=== PATIENT | female | born 1955 | race Caucasian/White ===

== ENCOUNTER 2016-10-28 10:27 | Inpatient (IN) | payer MEDICARE, MEDICAID ==
[~2016-10-28] VITALS: Ht 152.4 cm; Wt 49.0 kg
[2016-10-28] MEDS ORDERED: IV NORMAL SALINE 1000 ML BAG IV ONE (10:45)
[2016-10-28] MEDS ORDERED: HYDR50TA3 PO (10:51)
[2016-10-28] MEDS ORDERED: [UNRECOGNIZED DRUG - REMARK] (10:52)
[2016-10-28] MEDS ORDERED: ONDA4TAB8 PO (10:52)
[2016-10-28] MEDS ORDERED: ASPI-1094 PO (10:52)
[2016-10-28] MEDS ORDERED: [UNRECOGNIZED DRUG - REMARK] (10:52)
[2016-10-28 11:12] LABS: BASOPHILS % (AUTO) 0.3 % (0.0-2.0); EOSINOPHILS # (AUTO) 0.4 K/uL (0.0-0.7); EOSINOPHILS % (AUTO) 3.9 % (0.0-7.0); HEMATOCRIT 41.8 % (37-47); HEMOGLOBIN 13.9 G/DL (12.0-16.0); LYMPHOCYTES # (AUTO) 1.7 K/UL (0.8-4.8); MEAN CORPUSCULAR HEMOGLOBIN 31.3 UUG (27.0-31.0); MEAN CORPUSCULAR HGB CONC 33 g/dL (32.0-37.0); MEAN CORPUSCULAR VOLUME 94.4 FL (81.0-99.0); MONOCYTES # (AUTO) 0.5 K/UL (0.1-1.30); MONOCYTES % (AUTO) 5.2 % (0.0-11.0); NEUTROPHILS # (AUTO) 6.8 K/UL (1.8-8.9); NEUTROPHILS % (AUTO) 72.6 % (38.5-71.5); PLATELET COUNT (AUTO) 210 K/UL (150-450); RED BLOOD CELL COUNT(AUTO) 4.42 MIL/UL (4.2-5.4); WHITE BLOOD COUNT (AUTO) 9.4 K/UL (4.0-11.2)
[2016-10-28 11:14] LABS: CREATININE 6.7 mg/dL (0.6-1.3)
[2016-10-28 11:20] LABS: BILIRUBIN,DIRECT 0.1 mg/dL (0.0-0.2); BILIRUBIN,TOTAL 0.4 mg/dL (0.2-1.0); TOTAL PROTEIN, SERUM 8.6 g/dL (6.4-8.2)
--- NOTE | 2016-10-28 11:21 | NUR ---
Pt BIB ambulance for low BS=33 per paramedics; on arrival BS=76; pt a/o x 4, slow to respond, Temp 88.3C, provided with warm blankets; Evalutated by MD. Follow w/ MD orders.
[2016-10-28] MEDS: BLOOD SUGAR DIAGNOSTIC 1 EACH STRIP VI SCH ×3 (12:00→20:00)
[2016-10-28] MEDS ORDERED: PIPERACILLIN SODIUM/TAZOBACTAM 3.375 G in IV DEXTROSE 5% 50 ML IV ONE (12:00)
[2016-10-28] MEDS ORDERED: VANCOMYCIN IV 1,000 MG in IV DEXTROSE 5% 250 ML IV ONE (12:00)
[2016-10-28] MEDS ORDERED: hydrALAZINE HCL 20 MG/1 ML VIAL IV PRN (12:00)
[2016-10-28] MEDS ORDERED: Z GUARD REMEDY PASTE 57 GM TUBE TOP PRN (12:00)
[2016-10-28] MEDS ORDERED: DEXTROSE 50% 50 ML DISP.SYRIN IV PRN (12:00)
[2016-10-28] MEDS ORDERED: PIPERACILLIN/TAZOBACTAM/D5W 50 ML IV ONE (12:16)
--- NOTE | 2016-10-28 12:40 | NUR ---
A/O x 4, remains stable, nad noted, robbie shi provided for pt; Temp rechecked 93.2 C; No UA obtained via cath, Dr. Damon aware; hx of renal failure, on dialysis; report given to FLORENCIA, pt ok to transfer per MD; family w/ pt.
[2016-10-28] MEDS ORDERED: VANCOMYCIN IV 200 ML ONE (12:41)
[2016-10-28 13:00] VITALS: BP 188/75
--- NOTE | 2016-10-28 13:07 | NUR ---
At this time patient in from ER. via gurney accompanied by rn's. SBp in the 180's. temp in the low 90's patient awake, alert oriented. Placed on bear hugger. pt's daughter at bedside. Patient with IV line intact and infusing with Vancomycin.
--- NOTE | 2016-10-28 13:30 | NUR ---
REAL ESTATE BRANCH MANAGER in the unit to see patient, see orders.
[2016-10-28] MEDS ORDERED: HYDR-4077 PO (14:26)
[2016-10-28] MEDS ORDERED: CLON0.1T PO (14:27)
[2016-10-28] MEDS ORDERED: CLON1PAT TD (14:28)
[2016-10-28] MEDS ORDERED: ENALAPRILAT DIHYDRATE INJ 1.25 MG in IV NORMAL SALINE 50 ML IV PRN (14:45)
--- NOTE | 2016-10-28 14:45 | NUR ---
Dr. Marshall in the unit to see patient.
[2016-10-28] MEDS: hydrALAZINE HCL 50 MG TABLET PO SCH ×2 (15:27→21:11)
[2016-10-28 16:00] VITALS: BP 184/76
--- NOTE | 2016-10-28 16:04 | NUR ---
Dr. Brush in the unit to see patient; report given.
[2016-10-28] MEDS: ENALAPRILAT DIHYDRATE INJ 1.25 MG in IV NORMAL SALINE 50 ML IV SCH (17:29)
[2016-10-28] MEDS: ONDANSETRON 4 MG/2 ML VIAL IV PRN (18:26)
--- NOTE | 2016-10-28 19:15 | NUR ---
SBAR report received from JOSH Garcia
[2016-10-28 20:00] VITALS: BP 146/72
[2016-10-28] MEDS: PIPERACILLIN/TAZOBACTAM/D5W 2.25 G in PREMIXED 1 EACH IV SCH (20:00)
--- NOTE | 2016-10-28 20:00 | NUR ---
SBP improved 140's/70's, intermittently high 160's/90's. Encouraged to do deep breathing exercises, made her comfortable. Blood sugar checked 167mg/dl.
--- NOTE | 2016-10-28 21:00 | NUR ---
BP meds given, pt c/o of headache, she requested food, has been hungry, provided some snacks.
[2016-10-28] MEDS: ATORVASTATIN 20 MG TABLET PO SCH (21:10)
[2016-10-28] MEDS: CLONIDINE HCL 0.1 MG TABLET PO SCH (21:10)
[2016-10-28 22:00] VITALS: BP 165/90
[2016-10-28] MEDS ORDERED: PIPERACILLIN/TAZOBACTAM/D5W 3.375 G in PREMIXED 1 EACH IV SCH (22:00)
--- NOTE | 2016-10-28 22:15 | NUR ---
Report to JOSH Tinsley (FLORENCIA).Transferred pt to 2nd floor via wheelchair c/o CheryleCharge nurse (2nd floor).Pt reported felt a little bit better after eating.
--- NOTE | 2016-10-28 22:15 | NUR ---
Received telephone report from JOSH Burnett from CCU. Patient was transfered to the floor via wheelchair by the charge nurse. AAO x 4. Slovenian speaking. Complaint of lower back and right leg pain in scale of 8/10. RUE AVF new and old AVF on the [place]. BP at this time 162/80. Made comfortable on bed. Safety measure and fall precaution maintained. Continue care as planned.
[2016-10-28 22:28] VITALS: BP 162/80
[2016-10-28] MEDS: MORPHINE SULFATE 2 MG/1 ML DISP.SYRIN IV PRN (22:47)
[2016-10-29] VITALS (7 sets, daily range): BP systolic 127–168; BP diastolic 57–76
--- NOTE | 2016-10-29 | NUR ---
BS 386 mg/dl. MD was not notified Pt had HS snack.
[2016-10-29] MEDS: ENALAPRILAT DIHYDRATE INJ 1.25 MG in IV NORMAL SALINE 50 ML IV SCH ×2 (00:15→05:33)
[2016-10-29] MEDS: MORPHINE SULFATE 2 MG/1 ML DISP.SYRIN IV PRN ×3 (02:32→14:20)
--- NOTE | 2016-10-29 02:36 | NUR ---
Medicated for low back pain . Will monitor.
[2016-10-29] MEDS: BLOOD SUGAR DIAGNOSTIC 1 EACH STRIP VI SCH ×4 (03:36→22:47)
--- NOTE | 2016-10-29 03:40 | NUR ---
BS 395 mg/dl. Pt denies s/s of hyperglycemia. Left message for Dr. Gertrudis Conway. Anticipating MD to call back.
--- NOTE | 2016-10-29 03:50 | NUR ---
Dr. Conway called back with order to put patient on mild sliding scale coverage.
[2016-10-29] MEDS ORDERED: DEXTROSE 50% 50 ML DISP.SYRIN IV PRN ×5 (04:15→18:15)
[2016-10-29] MEDS ORDERED: INSULIN REGULAR, HUMAN 300 UNIT/3 ML VIAL SQ PRN ×4 (04:15→18:00)
[2016-10-29] MEDS: PIPERACILLIN/TAZOBACTAM/D5W 2.25 G in PREMIXED 1 EACH IV SCH ×3 (04:26→20:20)
[2016-10-29] MEDS ORDERED: PIPERACILLIN/TAZOBACTAM/D5W 50 ML IV ONE (04:32)
[2016-10-29] MEDS: hydrALAZINE HCL 50 MG TABLET PO SCH ×3 (05:32→21:16)
[2016-10-29] MEDS: CLONIDINE HCL 0.1 MG TABLET PO SCH ×3 (05:32→21:16)
--- NOTE | 2016-10-29 06:09 | NUR ---
Latest BP 162/75. Pt denies any s/s of hypertension. BP meds due given as ordered per parameter. Medicated twice for complaint of low back pain and bilateral leg pain with minimal relief. All needs attended and met. Continue care as planned.
[2016-10-29 07:12] LABS: BASOPHILS # (AUTO) 0.1 K/uL (0.0-8.0); BASOPHILS % (AUTO) 0.8 % (0.0-2.0); EOSINOPHILS # (AUTO) 0.3 K/uL (0.0-0.7); EOSINOPHILS % (AUTO) 4.1 % (0.0-7.0); LYMPHOCYTES # (AUTO) 1.2 K/UL (0.8-4.8); LYMPHOCYTES % (AUTO) 17.9 % (20.5-51.5); MEAN CORPUSCULAR HEMOGLOBIN 31.3 UUG (27.0-31.0); MEAN CORPUSCULAR HGB CONC 33 g/dL (32.0-37.0); MEAN CORPUSCULAR VOLUME 93.9 FL (81.0-99.0); MONOCYTES # (AUTO) 0.7 K/UL (0.1-1.30); MONOCYTES % (AUTO) 9.8 % (0.0-11.0); NEUTROPHILS # (AUTO) 4.5 K/UL (1.8-8.9); NEUTROPHILS % (AUTO) 67.4 % (38.5-71.5); PLATELET COUNT (AUTO) 175 K/UL (150-450)
[2016-10-29 07:21] LABS: HEMATOCRIT 32.2 % (37-47); HEMOGLOBIN 10.7 G/DL (12.0-16.0); RED BLOOD CELL COUNT(AUTO) 3.43 MIL/UL (4.2-5.4); WHITE BLOOD COUNT (AUTO) 6.8 K/UL (4.0-11.2)
--- NOTE | 2016-10-29 08:00 | NUR ---
CONTINUE WITH BLOOD SUGAR MONITORING, NO SIGNS OF DISTRESS, PAIN ASSESSMENT Q2 HRS
[2016-10-29] MEDS: ONDANSETRON 4 MG/2 ML VIAL IV PRN (08:03)
[2016-10-29] MEDS: PANTOPRAZOLE SODIUM 40 MG VIAL IV SCH (08:04)
[2016-10-29] MEDS: ASPIRIN 81 MG TAB.CHEW PO SCH (08:04)
[2016-10-29 09:39] LABS: BILIRUBIN,TOTAL 0.3 mg/dL (0.2-1.0); MAGNESIUM 2.9 mg/dL (1.8-2.4); POTASSIUM 4.7 mmol/L (3.5-5.1); TOTAL PROTEIN, SERUM 6.3 g/dL (6.4-8.2)
[2016-10-29 09:47] LABS: CREATININE 7.5 mg/dL (0.6-1.3)
[2016-10-29 11:51] LABS: IRON, SERUM 127 ug/dL (50-175)
[2016-10-29] MEDS: AMLODIPINE 5 MG TABLET PO SCH (12:18)
--- NOTE | 2016-10-29 13:00 | NUR ---
UP ON CHAIR WITH MIN ASSIST WITH FWW
[2016-10-29 13:16] LABS: THYROID STIMULATING HORMONE 1.761 mIU/mL (0.358-3.740)
--- NOTE | 2016-10-29 13:38 | NUR ---
SEEN BY BOOMBOAT OPERATOR WITH ORDERS. SEE NOTES
--- NOTE | 2016-10-29 14:28 | NUR ---
ELEVATOR OPERATOR FREIGHT MADE AWARE OF SEVERE PAIN BLE BUT MORE ON THE RIGHT WITH ORDERS
--- NOTE | 2016-10-29 16:00 | NUR ---
HEMODIALYSIS STARTED CLOSELY MONITORED
[2016-10-29] MEDS ORDERED: INSULIN REGULAR, HUMAN 300 UNITS/3 ML VIAL SQ PRN ×2 (18:00)
[2016-10-29] MEDS ORDERED: BLOOD SUGAR DIAGNOSTIC 1 EACH STRIP VI SCH ×3 (18:00)
[2016-10-29] MEDS: INSULIN REGULAR, HUMAN 300 UNIT/3 ML VIAL SQ PRN (18:22)
--- NOTE | 2016-10-29 18:38 | NUR ---
TOLERATING HEMODIALYSIS WELL. BP 109/59, HR 69. NO SIGNS OF ACUTE PAIN, NO SOB. SR ON MONITOR
--- NOTE | 2016-10-29 19:35 | NUR ---
PT RECEIVED IN BED, AWAKE AND COMFORTABLE. DAUGHTERS AT BEDSIDE. ABLE TO MAKE NEEDS KNOWN. VITAL SIGNS STABLE. NO SIGNS OF ACUTE DISTRESS. NO COMPLAINTS OF PAIN. SAFETY MEASURES IMPLEMENTED. CALL LIGHT WITHIN REACH. WILL CONTINUE TO MONITOR.
[2016-10-29] MEDS: ATORVASTATIN 20 MG TABLET PO SCH (20:20)
[2016-10-29] MEDS: INSULIN REGULAR, HUMAN 300 UNITS/3 ML VIAL SQ PRN (22:55)
[2016-10-30] VITALS: BP 142/68
[2016-10-30] MEDS: MORPHINE SULFATE 2 MG/1 ML DISP.SYRIN IV PRN ×4 (00:24→20:01)
[2016-10-30] MEDS: PIPERACILLIN/TAZOBACTAM/D5W 2.25 G in PREMIXED 1 EACH IV SCH ×3 (03:43→19:48)
[2016-10-30] MEDS ORDERED: BLOOD SUGAR DIAGNOSTIC 1 EACH STRIP VI SCH (04:00)
[2016-10-30 04:24] VITALS: BP 150/68
[2016-10-30] MEDS: hydrALAZINE HCL 50 MG TABLET PO SCH ×3 (05:30→21:55)
[2016-10-30] MEDS: CLONIDINE HCL 0.1 MG TABLET PO SCH ×3 (05:30→21:54)
[2016-10-30] MEDS: BLOOD SUGAR DIAGNOSTIC 1 EACH STRIP VI SCH ×4 (05:33→20:04)
[2016-10-30] MEDS: PANTOPRAZOLE SODIUM 40 MG VIAL IV SCH (06:26)
--- NOTE | 2016-10-30 06:42 | NUR ---
END OF SHIFT NOTES. PT SLEPT INTERMITTENTLY THROUGHOUT SHIFT. V/S STABLE. NO SIGNS OF ACUTE DISTRESS. COMPLAINTS OF LEG CRAMP AND PAIN BILATERALLY. PAIN MED GIVEN. NEEDS ATTENDED. SAFETY MAINTAINED. CALL LIGHT WITHIN REACH. Addendum: 10/30/16 at 0646 by ISAI MOHAN RN PT IS SINUS RHYTHM AT 68 ON THE MONITOR
[2016-10-30] MEDS: ONDANSETRON 4 MG/2 ML VIAL IV PRN ×3 (08:34→20:01)
--- NOTE | 2016-10-30 08:34 | NUR ---
PATIENT VOMITED AFTER SHE TOOK FEW BITES OF HER FOOD AND IS COMPLAINIG OF FEELIN NAUSEA MEDICATED WITH ZOFRAN ORDERED.
[2016-10-30] MEDS: ASPIRIN 81 MG TAB.CHEW PO SCH (08:35)
[2016-10-30] MEDS: AMLODIPINE 5 MG TABLET PO SCH (08:36)
[2016-10-30 08:47] LABS: BASOPHILS # (AUTO) 0.1 K/uL (0.0-8.0); EOSINOPHILS # (AUTO) 0.4 K/uL (0.0-0.7)
[2016-10-30 08:48] LABS: BASOPHILS % (AUTO) 0.9 % (0.0-2.0); EOSINOPHILS % (AUTO) 5.5 % (0.0-7.0); HEMATOCRIT 34.4 % (37-47); HEMOGLOBIN 11.4 G/DL (12.0-16.0); LYMPHOCYTES # (AUTO) 1.4 K/UL (0.8-4.8); LYMPHOCYTES % (AUTO) 18.2 % (20.5-51.5); MEAN CORPUSCULAR HEMOGLOBIN 30.5 UUG (27.0-31.0); MEAN CORPUSCULAR HGB CONC 33 g/dL (32.0-37.0); MEAN CORPUSCULAR VOLUME 91.9 FL (81.0-99.0); MONOCYTES # (AUTO) 0.9 K/UL (0.1-1.30); MONOCYTES % (AUTO) 11.1 % (0.0-11.0); NEUTROPHILS # (AUTO) 4.9 K/UL (1.8-8.9); NEUTROPHILS % (AUTO) 64.3 % (38.5-71.5); PLATELET COUNT (AUTO) 173 K/UL (150-450); RED BLOOD CELL COUNT(AUTO) 3.74 MIL/UL (4.2-5.4); WHITE BLOOD COUNT (AUTO) 7.8 K/UL (4.0-11.2)
[2016-10-30 09:05] LABS: BILIRUBIN,TOTAL 0.4 mg/dL (0.2-1.0); CREATININE 6.2 mg/dL (0.6-1.3); MAGNESIUM 2.5 mg/dL (1.8-2.4); POTASSIUM 5.2 mmol/L (3.5-5.1)
--- NOTE | 2016-10-30 09:20 | NUR ---
CALL FROM THE LAB PHOSPHORUS LEVEL IS 8.0 SAME YESTERDAY APRIL GRID INSPECTOR NOTIFIED WITH NO NEW ORDERS AT THIS TIME.
--- NOTE | 2016-10-30 09:40 | NUR ---
NEW ORDERS NOTED AT THIS TIME AND CARRIED OUT.
[2016-10-30] MEDS: SEVELAMER CARBONATE 800 MG TABLET PO SCH ×3 (09:45→17:25)
--- NOTE | 2016-10-30 10:37 | NUR ---
RENVELLA NOT GIVEN AT THIS TIME BECAUSE IT IS TO BE GIVEN WITH FOOD AND PATIENT DID NOT WANT TO EAT ANYTHING AT THIS TIME STATED THAT HER STOMACH FEELS FUNNY.
--- NOTE | 2016-10-30 11:19 | NUR ---
COMPLAINING OF PAIN IN HER LOWER EXTREMITIES RIGHT MORE THAN THE LEFT MEDICATED WITH MORPHINE ORDERED ANG WILL OBSERVE.PATIENT STATED WANTS ORAL MEDICATION FOR PAIN APRIL NOTIFIED AND SHE WANTS TO ORDER NORCO BUT PATIENT IS ALLERGIC TO ACETAMINOPHEN HYDROCODONE SO NO NEW ORDERS AT THIS TIME.
[2016-10-30 11:32] VITALS: BP 162/74
[2016-10-30] MEDS: INSULIN REGULAR, HUMAN 300 UNIT/3 ML VIAL SQ PRN ×2 (12:35→16:52)
[2016-10-30 16:04] VITALS: BP 160/78
--- NOTE | 2016-10-30 17:23 | NUR ---
BLOOD PRESSURE AT THIS TIME IS 160/78 UNABLE TO GIVE APRESOLINE IV ORDERED BECAUSE PATIENT IS NO LONGER ON TELEMETRY SO I CALLED DR ABEL AND NOTIFIED HIM AND HE STATED TO DISCONTINUE THE IV APRESOLINE AND START PATIENT ON COREG FIRST DOSE NOW AND NOTED AND WILL CONTINUE TO OBSERVE.
[2016-10-30] MEDS: CARVEDILOL 6.25 MG TABLET PO SCH ×2 (17:34→20:46)
[2016-10-30 20:00] VITALS: BP 152/73
[2016-10-30] MEDS: ATORVASTATIN 20 MG TABLET PO SCH (20:46)
[2016-10-30] MEDS: INSULIN REGULAR, HUMAN 300 UNITS/3 ML VIAL SQ PRN (20:49)
[2016-10-31] MEDS: ONDANSETRON 4 MG/2 ML VIAL IV PRN ×2 (01:54→08:52)
[2016-10-31] MEDS: MORPHINE SULFATE 2 MG/1 ML DISP.SYRIN IV PRN ×3 (01:54→23:29)
[2016-10-31] MEDS: PIPERACILLIN/TAZOBACTAM/D5W 2.25 G in PREMIXED 1 EACH IV SCH (04:05)
[2016-10-31 04:53] VITALS: BP 153/72
--- NOTE | 2016-10-31 05:06 | NUR ---
Patient still c/o on & off pain on bilateral knee & leg. Medicated for pain PRN, no acute resp. distress.
[2016-10-31] MEDS: hydrALAZINE HCL 50 MG TABLET PO SCH ×3 (05:50→22:20)
[2016-10-31] MEDS: CLONIDINE HCL 0.1 MG TABLET PO SCH ×3 (05:50→22:20)
[2016-10-31] MEDS: BLOOD SUGAR DIAGNOSTIC 1 EACH STRIP VI SCH ×4 (05:50→20:24)
[2016-10-31] MEDS: PANTOPRAZOLE SODIUM 40 MG TABLET.DR PO SCH (05:51)
[2016-10-31] MEDS: INSULIN REGULAR, HUMAN 300 UNIT/3 ML VIAL SQ PRN ×3 (07:26→16:39)
--- NOTE | 2016-10-31 07:30 | NUR ---
pt received in bed awake.pt is axox4.German speaking morning assessment done..
[2016-10-31] MEDS: ASPIRIN 81 MG TAB.CHEW PO SCH (08:01)
[2016-10-31] MEDS: SEVELAMER CARBONATE 800 MG TABLET PO SCH ×3 (08:01→17:04)
[2016-10-31] MEDS: CARVEDILOL 6.25 MG TABLET PO SCH (08:02)
[2016-10-31] MEDS: AMLODIPINE 5 MG TABLET PO SCH ×2 (08:02→20:18)
[2016-10-31 10:17] LABS: BASOPHILS % (AUTO) 0.6 % (0.0-2.0); EOSINOPHILS # (AUTO) 0.3 K/uL (0.0-0.7); EOSINOPHILS % (AUTO) 4.1 % (0.0-7.0); HEMATOCRIT 31.6 % (37-47); HEMOGLOBIN 10.5 G/DL (12.0-16.0); LYMPHOCYTES # (AUTO) 0.9 K/UL (0.8-4.8); LYMPHOCYTES % (AUTO) 12.7 % (20.5-51.5); MEAN CORPUSCULAR HEMOGLOBIN 30.8 UUG (27.0-31.0); MEAN CORPUSCULAR HGB CONC 33 g/dL (32.0-37.0); MEAN CORPUSCULAR VOLUME 92.4 FL (81.0-99.0); MONOCYTES # (AUTO) 0.5 K/UL (0.1-1.30); MONOCYTES % (AUTO) 6.2 % (0.0-11.0); NEUTROPHILS # (AUTO) 5.8 K/UL (1.8-8.9); NEUTROPHILS % (AUTO) 76.4 % (38.5-71.5); PLATELET COUNT (AUTO) 165 K/UL (150-450); RED BLOOD CELL COUNT(AUTO) 3.42 MIL/UL (4.2-5.4); WHITE BLOOD COUNT (AUTO) 7.5 K/UL (4.0-11.2)
[2016-10-31 10:26] LABS: BILIRUBIN,TOTAL 0.4 mg/dL (0.2-1.0); CREATININE 5.4 mg/dL (0.6-1.3); MAGNESIUM 2.4 mg/dL (1.8-2.4); PHOSPHOROUS 6.2 mg/dL (2.5-4.9); TOTAL PROTEIN, SERUM 6.8 g/dL (6.4-8.2)
[2016-10-31 11:13] VITALS: BP 157/68
[2016-10-31] MEDS ORDERED: CEFTRIAXONE 1 G in IV DEXTROSE 5% 50 ML IV SCH (12:00)
--- NOTE | 2016-10-31 12:05 | NUR ---
dialysis done 2 litter fluid removed .
--- NOTE | 2016-10-31 12:07 | NUR ---
microbiology lab called pt is positive for c-Diff .fitness worker barry notified.
[2016-10-31] MEDS: VANCOMYCIN FOR PO/GT/NG USE PO SCH ×3 (13:26→23:24)
[2016-10-31 15:33] VITALS: BP 138/65
--- NOTE | 2016-10-31 17:12 | NUR ---
pt c/o pain ,per md orders morphine i/v given.
[2016-10-31 20:04] VITALS: BP 162/78
[2016-10-31] MEDS: ATORVASTATIN 20 MG TABLET PO SCH (20:18)
[2016-10-31] MEDS: INSULIN REGULAR, HUMAN 300 UNITS/3 ML VIAL SQ PRN (20:27)
--- NOTE | 2016-11-01 04:26 | NUR ---
PT C/O R LEG PAIN 10/ LAST NIGHT, WAS GIVEN MS 2MG, NO FURTHER C/O PAIN, SLEEPING AT THIS TIME, IN NO ACUTE SIGNS OF DISTRESS. BS CHECKED, 242, GIVEN INSULIN PER SLIDING SCALE. CONTINUED TO MONITOR.
[2016-11-01] MEDS: hydrALAZINE HCL 50 MG TABLET PO SCH ×3 (05:40→22:14)
[2016-11-01] MEDS: CLONIDINE HCL 0.1 MG TABLET PO SCH ×2 (05:41→16:49)
[2016-11-01] MEDS: VANCOMYCIN FOR PO/GT/NG USE PO SCH ×4 (05:42→23:35)
[2016-11-01] MEDS: PANTOPRAZOLE SODIUM 40 MG TABLET.DR PO SCH (06:03)
[2016-11-01] MEDS: MORPHINE SULFATE 2 MG/1 ML DISP.SYRIN IV PRN ×2 (06:19→20:55)
[2016-11-01 06:39] VITALS: BP 141/60
[2016-11-01] MEDS: BLOOD SUGAR DIAGNOSTIC 1 EACH STRIP VI SCH ×4 (06:40→20:31)
[2016-11-01 07:44] LABS: BILIRUBIN,TOTAL 0.5 mg/dL (0.2-1.0); CREATININE 6.6 mg/dL (0.6-1.3); MAGNESIUM 2.6 mg/dL (1.8-2.4); POTASSIUM 5.4 mmol/L (3.5-5.1); TOTAL PROTEIN, SERUM 7.3 g/dL (6.4-8.2)
[2016-11-01 07:57] LABS: PHOSPHOROUS 8.5 mg/dL (2.5-4.9)
[2016-11-01] MEDS: INSULIN REGULAR, HUMAN 300 UNIT/3 ML VIAL SQ PRN ×2 (08:09→11:59)
[2016-11-01] MEDS: SEVELAMER CARBONATE 800 MG TABLET PO SCH ×3 (08:11→17:35)
[2016-11-01] MEDS: ASPIRIN 81 MG TAB.CHEW PO SCH (08:11)
[2016-11-01] MEDS: AMLODIPINE 5 MG TABLET PO SCH ×2 (08:12→20:31)
[2016-11-01 08:13] LABS: BASOPHILS # (AUTO) 0.1 K/uL (0.0-8.0); BASOPHILS % (AUTO) 0.7 % (0.0-2.0); EOSINOPHILS # (AUTO) 0.4 K/uL (0.0-0.7); HEMATOCRIT 33.1 % (37-47); HEMOGLOBIN 10.7 G/DL (12.0-16.0); LYMPHOCYTES # (AUTO) 1.7 K/UL (0.8-4.8); LYMPHOCYTES % (AUTO) 17.3 % (20.5-51.5); MEAN CORPUSCULAR HEMOGLOBIN 29.6 UUG (27.0-31.0); MEAN CORPUSCULAR HGB CONC 32 g/dL (32.0-37.0); MEAN CORPUSCULAR VOLUME 91.7 FL (81.0-99.0); NEUTROPHILS # (AUTO) 6.5 K/UL (1.8-8.9); PLATELET COUNT (AUTO) 179 K/UL (150-450); RED BLOOD CELL COUNT(AUTO) 3.62 MIL/UL (4.2-5.4)
[2016-11-01 08:15] LABS: WHITE BLOOD COUNT (AUTO) 9.7 K/UL (4.0-11.2)
--- NOTE | 2016-11-01 09:48 | NUR ---
NEW ORDERS NOTED FROM APRIL MANAGER READING AND NOTED.
[2016-11-01] MEDS ORDERED: ISOSORBIDE DINITRATE 10 MG TABLET PO SCH (10:30)
--- NOTE | 2016-11-01 10:48 | NUR ---
PATIENT SEEN AND EXAMINED BY DR ALEGRE RAILROAD CROSSING PROTECTION MAINTAINER WITH NEW ORDERS AND NOTED.
[2016-11-01] MEDS ORDERED: SEVE800T PO (11:04)
[2016-11-01] MEDS ORDERED: ISOS20TA8 PO (11:04)
[2016-11-01] MEDS ORDERED: AMLO5TAB2 PO (11:04)
[2016-11-01] MEDS ORDERED: HYDR50TA68 PO (11:04)
[2016-11-01] MEDS ORDERED: CEPH250C PO ×2 (11:04→11:08)
[2016-11-01] MEDS ORDERED: VANC500V PO (11:04)
[2016-11-01] MEDS ORDERED: CEPHALEXIN MONOHYDRATE 250 MG CAPSULE PO SCH ×2 (11:04→14:00)
[2016-11-01] MEDS ORDERED: ATOR20TA PO (11:04)
[2016-11-01] MEDS ORDERED: CLON0.1T14 PO (11:08)
[2016-11-01] MEDS ORDERED: INSU100V28 SQ ×2 (11:14)
--- NOTE | 2016-11-01 11:25 | NUR ---
PATIENT SEEN BY DR BETHEA AND STATED THAT PATIENT WILL HAVE DIALYSIS TODAY BUT APRIL WIRE COMMUNICATIONS ENGINEER HERE AND DISCHARGED THE PATIENT PATIENT STATED THAT ITS OKAY FOR PATIENT TO HAVE THE DIALYSIS THEN BE DISCHARGE TONITE AND NOTED.PATIENT AND HER FAMILY AWARE.
[2016-11-01 11:48] VITALS: BP 148/66
[2016-11-01] MEDS: ISOSORBIDE DINITRATE 20 MG TABLET PO SCH ×2 (11:56→20:31)
--- NOTE | 2016-11-01 12:00 | NUR ---
NEW ORDERS NOTED FROM APRIL TO CANCEL THE DISCHARGE AND START PATIENT ON [place] AND THE ID DR PEREZ WILL BE HERE TODAY TO SEE PATIENT AND NOTED.
[2016-11-01] MEDS ORDERED: MEROPENEM 250 MG in IV NORMAL SALINE 50 ML IV SCH (12:15)
[2016-11-01] MEDS ORDERED: MEROPENEM 0.5 G in IV NORMAL SALINE 50 ML IV PRN (12:30)
[2016-11-01] MEDS: MEROPENEM 0.5 G in IV NORMAL SALINE 50 ML IV SCH (13:47)
--- NOTE | 2016-11-01 15:38 | NUR ---
MANAGER TECHNOLOGY HERE TO START DIALYSIS ORDERED IVPB GIVEN ORDERED WITH NO ADVERSE OR ALLERGIC REACTIONS AT THIS TIME.REMAIN ON CONTACT ISOLATION AND PRECAUTION NOT IN DISTRESS AT THIS TIME.
[2016-11-01 16:12] VITALS: BP 139/75
--- NOTE | 2016-11-01 16:52 | NUR ---
PATIENT IS CURRENTLY HAVING DIALYSIS HER BLOOD PRESSURE IS 139/61 CLONIDINE HELD AT THIS TIME.DAUGHTER IS AT THE BEDSIDE AND PER ARPIL SHE SPOKE WITH THE DAUGHTER AT LENGTH RE CANCELLING THE ADMISSION.
--- NOTE | 2016-11-01 17:31 | NUR ---
DIALYSIS COMPLETED ORDERED AND ONE LITER WAS REMOVED AND MEREM GIVEN POST DIALYSIS ORDERED AND PATIENT TOLERATED WELL..
[2016-11-01 19:00] VITALS: BP 137/68
--- NOTE | 2016-11-01 19:45 | NUR ---
PATIENT AWAKE IN BED WITH FAMILY AT BEDSIDE. NO C/O PAIN AT THIS TIME. NO RESP. DISTRESS NOTED. VSS. H/L INTACT AND PATENT. BED ALARM ON. CALL LIGHT IN REACH. ALL NEEDS ATTENDED. WILL CONTINUE TO MONITOR.
[2016-11-01] MEDS: ATORVASTATIN 20 MG TABLET PO SCH (20:31)
[2016-11-01] MEDS: INSULIN REGULAR, HUMAN 300 UNITS/3 ML VIAL SQ PRN (20:32)
[2016-11-01] MEDS ORDERED: MORPHINE SULFATE 2 MG/1 ML DISP.SYRIN IV PRN (22:00)
[2016-11-01] MEDS ORDERED: MORPHINE SULFATE 2 MG/1 ML DISP.SYRIN IV ONE (22:15)
[2016-11-01] MEDS ORDERED: MORPHINE SULFATE 2 MG/1 ML DISP.SYRIN ONE (22:28)
[2016-11-02 05:00] VITALS: BP 157/65
[2016-11-02] MEDS: PANTOPRAZOLE SODIUM 40 MG TABLET.DR PO SCH (06:09)
[2016-11-02] MEDS: VANCOMYCIN FOR PO/GT/NG USE PO SCH ×2 (06:09→11:27)
[2016-11-02] MEDS: hydrALAZINE HCL 50 MG TABLET PO SCH (06:10)
--- NOTE | 2016-11-02 06:20 | NUR ---
PATIENT AWAKE IN BED. SLEPT WELL. NO C/O PAIN OR DISCOMFORT. NO RESP. DISTRESS NOTED. BED ALARM ON. CALL LIGHT IN REACH. ALL NEEDS ATTENDED. WILL CONTINUE TO MONITOR.
[2016-11-02] MEDS: BLOOD SUGAR DIAGNOSTIC 1 EACH STRIP VI SCH ×2 (06:47→11:26)
[2016-11-02 07:07] LABS: BILIRUBIN,TOTAL 0.2 mg/dL (0.2-1.0); CREATININE 5.6 mg/dL (0.6-1.3); MAGNESIUM 2.4 mg/dL (1.8-2.4); PHOSPHOROUS 7.5 mg/dL (2.5-4.9); POTASSIUM 5.3 mmol/L (3.5-5.1); TOTAL PROTEIN, SERUM 6.8 g/dL (6.4-8.2)
[2016-11-02 07:14] LABS: BASOPHILS # (AUTO) 0.1 K/uL (0.0-8.0); BASOPHILS % (AUTO) 0.6 % (0.0-2.0); EOSINOPHILS # (AUTO) 0.4 K/uL (0.0-0.7); EOSINOPHILS % (AUTO) 4.2 % (0.0-7.0); HEMATOCRIT 29.8 % (37-47); LYMPHOCYTES # (AUTO) 1.2 K/UL (0.8-4.8); LYMPHOCYTES % (AUTO) 12.6 % (20.5-51.5); MEAN CORPUSCULAR HEMOGLOBIN 31.2 UUG (27.0-31.0); MEAN CORPUSCULAR HGB CONC 34 g/dL (32.0-37.0); MEAN CORPUSCULAR VOLUME 93.2 FL (81.0-99.0); MONOCYTES % (AUTO) 10.9 % (0.0-11.0); NEUTROPHILS # (AUTO) 6.5 K/UL (1.8-8.9); NEUTROPHILS % (AUTO) 71.7 % (38.5-71.5); PLATELET COUNT (AUTO) 188 K/UL (150-450); WHITE BLOOD COUNT (AUTO) 9.2 K/UL (4.0-11.2)
[2016-11-02 07:23] LABS: RED BLOOD CELL COUNT(AUTO) 3.25 MIL/UL (4.2-5.4)
[2016-11-02] MEDS: INSULIN REGULAR, HUMAN 300 UNIT/3 ML VIAL SQ PRN ×2 (08:03→11:31)
[2016-11-02] MEDS: SEVELAMER CARBONATE 800 MG TABLET PO SCH ×2 (08:04→11:26)
[2016-11-02] MEDS: ASPIRIN 81 MG TAB.CHEW PO SCH (08:36)
[2016-11-02] MEDS: AMLODIPINE 5 MG TABLET PO SCH (08:37)
[2016-11-02] MEDS: CLONIDINE HCL 0.1 MG TABLET PO SCH (08:37)
[2016-11-02] MEDS: ISOSORBIDE DINITRATE 20 MG TABLET PO SCH (08:38)
--- NOTE | 2016-11-02 09:00 | NUR ---
PATIENT IS AWAKE ALERT AND ORIENTED SITTING UP ON THE CHAIR USING THE FRONT WHEEL WALKER.RIGHT UPPER ARM AV SHUNT REMAINS INTACT WITH BRUIT AND THRILL WITH NO BLEEDING AT THIS TIME.REMAIN ON CONTACT ISOLATION AND PRECAUTION ORDERED.PATIENT AND HIS FAMILY EDUCATED ON ISOLATION PROTOCOLS AND THEY EXPRESSED UNDERSTANDING.
[2016-11-02] MEDS ORDERED: NIFEdipine XL 60 MG TABSR PO SCH (09:30)
--- NOTE | 2016-11-02 11:22 | NUR ---
The patient will be discharged today back home [[id number], [place] [id number]] per Greta Owens CATALYST MANUFACTURING OPERATOR. Her daughter is aware of her discharge and will be picking her up via private car. Her RN, Audrey, is aware of her discharge plan.
[2016-11-02 11:51] VITALS: BP 138/64
[2016-11-02] MEDS ORDERED: NIFE60TA2 PO (11:56)
[2016-11-02] MEDS ORDERED: [UNRECOGNIZED DRUG - CODE] PO (11:56)
[2016-11-02] MEDS ORDERED: METRONIDAZOLE 250 MG TABLET PO SCH (12:00)
[2016-11-02] MEDS: MEROPENEM 0.5 G in IV NORMAL SALINE 50 ML IV SCH (12:34)
--- NOTE | 2016-11-02 13:05 | NUR ---
PATIENT DISCHARGED PICKED UP BY HER DAUGHTER NICOLASA IN SATISFACTORY CONDITION WITH DISCHARGE INSTRUCTIONS AND PRESCRIPTIONS AND SHE WAS INSTRUCTED TO OBSERVE CONTACT ISOLATION WITH GOOD HANDWASHING PATIENT HAS C DEFFICILE TOXINS IN HER STOOL AND ESBL AND TO CALL HER PRIMARY DOCTOR FOR A FOLLOW UP APPOINTMENT WITHIN THE NEXT ONE TO TWO WEEKS FOR URINE RECHECK AND TO CONTINUE HER DIALYSIS ORDERED AND SHE EXPRESSED UNDERSTANDING.
== END 2016-11-02 13:05 | disposition home or self-care (01) | DRG 371 ==
LOC: ER 10:27 → CCU 12:41 → TELE-TD 22:13 → TELE 10-29 14:48 → MED 10-30 12:53
PROVIDERS: ADMIT Internal Medicine; ATTEND Internal Medicine
PROC: 5A1D60Z (ICD-10-PCS; principal; 2016-10-29)
DX: A04.7 Enterocolitis due to Clostridium difficile (principal); I50.33 Acute on chronic diastolic (congestive) heart failure; G92 Toxic encephalopathy; N18.6 End stage renal disease; I13.2 Hypertensive heart and chronic kidney disease with heart failure and with stage 5 chronic kidney disease, or end stage renal disease; N39.0 Urinary tract infection, site not specified; E44.0 Moderate protein-calorie malnutrition; E11.649 Type 2 diabetes mellitus with hypoglycemia without coma; E11.22 Type 2 diabetes mellitus with diabetic chronic kidney disease; Z99.2 Dependence on renal dialysis; D63.1 Anemia in chronic kidney disease; Z79.4 Long term (current) use of insulin; Z90.49 Acquired absence of other specified parts of digestive tract; E11.42 Type 2 diabetes mellitus with diabetic polyneuropathy; Z80.0 Family history of malignant neoplasm of digestive organs; I16.0 Hypertensive urgency; B96.29 Other Escherichia coli [E. coli] as the cause of diseases classified elsewhere; Z16.12 Extended spectrum beta lactamase (ESBL) resistance; M17.0 Bilateral primary osteoarthritis of knee; Z68.21 Body mass index [BMI] 21.0-21.9, adult; F17.210 Nicotine dependence, cigarettes, uncomplicated; M89.9 Disorder of bone, unspecified; I08.0 Rheumatic disorders of both mitral and aortic valves; E87.5 Hyperkalemia; E83.41 Hypermagnesemia; E83.39 Other disorders of phosphorus metabolism; R68.0 Hypothermia, not associated with low environmental temperature; R60.0 Localized edema
CPT/HCPCS: 36415; 70030-TC; 71010; 73560; 73590; 76700; 83550; 83605; 83690; 83735; 84100; 84443; 85025; 85730; 87040; 87077; 87086; 90937; 93005; 93307; 97116; 97161; 97530; A4663; C1758; C9113; J0696; J1815; J2185; J2270; J2405; J2543; J3370; J3490; J7030; J7050; J7060

== ENCOUNTER 2016-11-27 18:54 | Inpatient (IN) | payer MEDICARE, MEDICAID ==
[~2016-11-27] VITALS: Ht 154.9 cm; Wt 55.5 kg
[~2016-11-27 18:54] MED LIST: ASPI-1094 PO; ATOR20TA PO; CLON0.1T14 PO; HYDR50TA68 PO; INSU100V28 SQ; ISOS20TA8 PO; METR250T4 PO; NIFE60TA2 PO; SEVE800T7 PO
--- NOTE | 2016-11-27 19:07 | NUR ---
Dr. Damon at bedside for eval.
[2016-11-27] MEDS ORDERED: IV NORMAL SALINE 1000 ML BAG IV ONE (19:15)
[2016-11-27] MEDS ORDERED: ONDANSETRON 4 MG/2 ML VIAL IV ONE (19:15)
[2016-11-27] MEDS ORDERED: HYDROMORPHONE 1 MG/1 ML DISP.SYRIN IV ONE (19:15)
[2016-11-27] MEDS ORDERED: HYDROMORPHONE 1 MG/1 ML DISP.SYRIN ONE (19:44)
[2016-11-27] MEDS ORDERED: ONDANSETRON 4 MG/2 ML VIAL ONE (19:44)
[2016-11-27 19:49] LABS: BASOPHILS # (AUTO) 0.3 K/uL (0.0-8.0); BASOPHILS % (AUTO) 2.1 % (0.0-2.0); EOSINOPHILS # (AUTO) 0.3 K/uL (0.0-0.7); HEMATOCRIT 26.5 % (37-47); HEMOGLOBIN 8.6 G/DL (12.0-16.0); LYMPHOCYTES # (AUTO) 0.8 K/UL (0.8-4.8); LYMPHOCYTES % (AUTO) 4.9 % (20.5-51.5); MEAN CORPUSCULAR HGB CONC 32 g/dL (32.0-37.0); MEAN CORPUSCULAR VOLUME 92.6 FL (81.0-99.0); MONOCYTES # (AUTO) 1.2 K/UL (0.1-1.30); MONOCYTES % (AUTO) 7.5 % (0.0-11.0); NEUTROPHILS # (AUTO) 13.3 K/UL (1.8-8.9); NEUTROPHILS % (AUTO) 83.5 % (38.5-71.5); PLATELET COUNT (AUTO) 178 K/UL (150-450); RED BLOOD CELL COUNT(AUTO) 2.86 MIL/UL (4.2-5.4); WHITE BLOOD COUNT (AUTO) 15.9 K/UL (4.0-11.2)
[2016-11-27 19:54] LABS: CREATININE 6.7 mg/dL (0.6-1.3); POTASSIUM 3.9 mmol/L (3.5-5.1)
[2016-11-27 20:00] LABS: BILIRUBIN,DIRECT 0.1 mg/dL (0.0-0.2); BILIRUBIN,TOTAL 0.5 mg/dL (0.2-1.0); TOTAL PROTEIN, SERUM 7.2 g/dL (6.4-8.2)
[2016-11-27 20:04] LABS: BAND % (MANUAL) 2 % (0-10); EOSINOPHILS % (MANUAL) 1 % (0-8); LYMPHOCYTES % (MANUAL) 11 % (20-40); MONOCYTES % (MANUAL) 7 % (2-10); NEUTROPHILS % (MANUAL) 79 % (42-75)
--- NOTE | 2016-11-27 21:10 | NUR ---
Report called to Will. Patient admitted to room [address] Tinajero.
--- NOTE | 2016-11-27 21:20 | NUR ---
Patient has money in her purse and would like to have it palced in hospital safe. Money counted with JOSH Jiang. Envelope with money given to Copywriter. Copy provided to patient.
--- NOTE | 2016-11-27 22:00 | NUR ---
PATIENT ADMITTED TELE UNIT UNDER DR ABEL , BELONGINGS WAS LISTED IN INVENTORY LIST. ORIENTED TO ROOM.
--- NOTE | 2016-11-27 22:00 | NUR ---
Transported patient to room 205 via gurney. Patient left ER in no acute distress.
[2016-11-27 22:12] VITALS: BP 151/61
[2016-11-27] MEDS ORDERED: TEMAZEPAM 15 MG CAPSULE PO PRN (23:15)
[2016-11-27] MEDS ORDERED: MORPHINE SULFATE 2 MG/1 ML DISP.SYRIN IV PRN (23:15)
--- NOTE | 2016-11-27 23:56 | NUR ---
PATIENT REFUSED DVT PUMP, STATED "IT BOTHER BOTH OF HER LEGS" EXPLAINED THE RISK AND BENEFIT THRU VACUUM FORMING MACHINE OPERATOR, STILL REFUSED.
[2016-11-27 23:58] VITALS: BP 148/60
[2016-11-28] MEDS ORDERED: MORPHINE SULFATE 2 MG/1 ML DISP.SYRIN ONE (00:36)
[2016-11-28] MEDS: IBUPROFEN 600 MG TABLET PO PRN ×2 (03:10→12:10)
--- NOTE | 2016-11-28 03:11 | NUR ---
PATIENT STILL COMPLAIN OF R PELVIC PAIN, NOTIFY DR ROMULO LEWIS WITH ORDER OF MOTRIN 600MG EVERY 8 HRS NEEDED.
[2016-11-28] MEDS ORDERED: IBUPROFEN 600 MG TABLET ONE (03:18)
[2016-11-28 05:00] VITALS: BP 178/77
[2016-11-28] MEDS: hydrALAZINE HCL 50 MG TABLET PO SCH ×3 (06:20→22:00)
[2016-11-28] MEDS ORDERED: hydrALAZINE HCL 50 MG TABLET ONE (06:28)
[2016-11-28 07:12] LABS: BASOPHILS % (AUTO) 0.3 % (0.0-2.0); EOSINOPHILS # (AUTO) 0.5 K/uL (0.0-0.7); EOSINOPHILS % (AUTO) 3.6 % (0.0-7.0); HEMOGLOBIN 8.3 G/DL (12.0-16.0); LYMPHOCYTES # (AUTO) 1.3 K/UL (0.8-4.8); MEAN CORPUSCULAR HEMOGLOBIN 29.6 UUG (27.0-31.0); MEAN CORPUSCULAR HGB CONC 32 g/dL (32.0-37.0); MEAN CORPUSCULAR VOLUME 92.1 FL (81.0-99.0); MONOCYTES # (AUTO) 1.1 K/UL (0.1-1.30); MONOCYTES % (AUTO) 8.7 % (0.0-11.0); NEUTROPHILS # (AUTO) 9.6 K/UL (1.8-8.9); NEUTROPHILS % (AUTO) 77.4 % (38.5-71.5); RED BLOOD CELL COUNT(AUTO) 2.82 MIL/UL (4.2-5.4); WHITE BLOOD COUNT (AUTO) 12.5 K/UL (4.0-11.2)
[2016-11-28 07:41] LABS: BILIRUBIN,TOTAL 0.4 mg/dL (0.2-1.0); MAGNESIUM 2.8 mg/dL (1.8-2.4); PHOSPHOROUS 5.8 mg/dL (2.5-4.9); POTASSIUM 3.7 mmol/L (3.5-5.1); TOTAL PROTEIN, SERUM 6.9 g/dL (6.4-8.2)
[2016-11-28 08:00] VITALS: BP 160/73
[2016-11-28] MEDS: CLONIDINE HCL 0.1 MG TABLET PO SCH ×2 (08:01→16:12)
[2016-11-28] MEDS: SEVELAMER CARBONATE 800 MG TABLET PO SCH ×3 (08:01→17:45)
[2016-11-28] MEDS: NIFEdipine XL 60 MG TABSR PO SCH (08:02)
[2016-11-28] MEDS: HYDROCODONE/APAP 5-325MG TABLET PO PRN ×2 (08:02→17:45)
[2016-11-28 08:06] LABS: CREATININE 7.6 mg/dL (0.6-1.3)
[2016-11-28] MEDS ORDERED: MORPHINE SULFATE 4 MG/1 ML DISP.SYRIN IV PRN (08:15)
[2016-11-28] MEDS: PANTOPRAZOLE SODIUM 40 MG TABLET.DR PO SCH (08:19)
[2016-11-28] MEDS ORDERED: TEMAZEPAM 7.5 MG CAPSULE PO PRN (08:30)
[2016-11-28] MEDS: ISOSORBIDE DINITRATE 20 MG TABLET PO SCH ×2 (08:37→20:55)
[2016-11-28 10:26] LABS: PLATELET COUNT (AUTO) 206 K/UL (150-450)
[2016-11-28 11:14] VITALS: BP 118/52
[2016-11-28] MEDS: MORPHINE SULFATE 4 MG/1 ML DISP.SYRIN IV PRN ×2 (11:22→21:06)
[2016-11-28] MEDS: ONDANSETRON 4 MG/2 ML VIAL IV PRN (12:13)
[2016-11-28 15:09] VITALS: BP 114/50
--- NOTE | 2016-11-28 18:47 | NUR ---
PATIENT IN BED RESTING. NO S/S OF DISTRESS NOTED. C/O OF RIGHT LEG. MEDICATED ORDERED. COMPLIANT WITH THE PLAN OF CARE. COMPLAINED OF ITCHING, WILL ENDORSE TO NEXT NURSE. SAFETY AND COMFORT PROVIDED BY STAFF. WILL CONTINUE MONITORING.
[2016-11-28 20:00] VITALS: BP 123/51
[2016-11-28] MEDS: ATORVASTATIN 20 MG TABLET PO SCH (20:55)
[2016-11-28] MEDS: diphenhydrAMINE 50 MG/1 ML VIAL IV PRN (21:06)
--- NOTE | 2016-11-28 21:20 | NUR ---
patient awake, alert, oriented,c/o right pelvic pain and itching, morphine 3 mg iv and Benadryl 25 mg iv admin for pain and itching,patient was instructed for bedrest activity,to call for assistance,patient verbalized understanding,continue closely monitor.
[2016-11-29] VITALS: BP 152/63
[2016-11-29] MEDS: MORPHINE SULFATE 4 MG/1 ML DISP.SYRIN IV PRN ×4 (00:28→20:53)
[2016-11-29 04:00] VITALS: BP 147/64
[2016-11-29] MEDS: diphenhydrAMINE 50 MG/1 ML VIAL IV PRN ×2 (04:32→22:40)
[2016-11-29] MEDS: hydrALAZINE HCL 50 MG TABLET PO SCH ×3 (05:52→22:29)
[2016-11-29] MEDS: PANTOPRAZOLE SODIUM 40 MG TABLET.DR PO SCH (05:52)
[2016-11-29 06:56] LABS: BILIRUBIN,TOTAL 0.3 mg/dL (0.2-1.0); MAGNESIUM 2.5 mg/dL (1.8-2.4); PHOSPHOROUS 5.3 mg/dL (2.5-4.9); POTASSIUM 4.3 mmol/L (3.5-5.1); TOTAL PROTEIN, SERUM 7.1 g/dL (6.4-8.2)
[2016-11-29 07:34] LABS: BASOPHILS # (AUTO) 0.1 K/uL (0.0-8.0); BASOPHILS % (AUTO) 0.7 % (0.0-2.0); EOSINOPHILS # (AUTO) 0.4 K/uL (0.0-0.7); EOSINOPHILS % (AUTO) 3.3 % (0.0-7.0); HEMATOCRIT 25.4 % (37-47); HEMOGLOBIN 8.1 G/DL (12.0-16.0); MEAN CORPUSCULAR HEMOGLOBIN 29.4 UUG (27.0-31.0); MEAN CORPUSCULAR HGB CONC 32 g/dL (32.0-37.0); MEAN CORPUSCULAR VOLUME 92.8 FL (81.0-99.0); MONOCYTES # (AUTO) 1.2 K/UL (0.1-1.30); MONOCYTES % (AUTO) 10.5 % (0.0-11.0); NEUTROPHILS # (AUTO) 8.4 K/UL (1.8-8.9); NEUTROPHILS % (AUTO) 76.5 % (38.5-71.5); PLATELET COUNT (AUTO) 203 K/UL (150-450); RED BLOOD CELL COUNT(AUTO) 2.74 MIL/UL (4.2-5.4); WHITE BLOOD COUNT (AUTO) 11.1 K/UL (4.0-11.2)
--- NOTE | 2016-11-29 08:30 | NUR ---
AWAKE ALERT AND ORIENTED DENIES PAIN OR DISCOMFORTS AT THIS TIME LEFT ARM AND LEFT LEG IS SWOLLEN ENCOURAGED TO ELEVATE ON THE PILLOW AV SHUNT IS INTACT WITH BRUIT AND THRILL MADE COMFORTABLE NOT IN DISTRESS AT THIS TIME.
[2016-11-29] MEDS: SEVELAMER CARBONATE 800 MG TABLET PO SCH ×3 (08:32→17:21)
[2016-11-29] MEDS: CLONIDINE HCL 0.1 MG TABLET PO SCH ×2 (08:33→17:22)
[2016-11-29] MEDS: NIFEdipine XL 60 MG TABSR PO SCH (08:33)
[2016-11-29] MEDS: ISOSORBIDE DINITRATE 20 MG TABLET PO SCH ×2 (08:34→20:27)
[2016-11-29 12:03] VITALS: BP 159/70
--- NOTE | 2016-11-29 13:00 | NUR ---
FAMILY AT THE BEDSIDE DENIES PAIN OR DISCOMFORTS AT THIS TIME RIGHT ARM WITH POSITIVE BURIT AND THRILL.
[2016-11-29 16:02] VITALS: BP 145/62
--- NOTE | 2016-11-29 17:29 | NUR ---
MEDICATED WITH MORPHINE FOR C/O PAIN AND DISCOMFORTYS ON HER RIGHT KNEE AND HELPFUL.
--- NOTE | 2016-11-29 19:30 | NUR ---
RECEIVED PATIENT LAYING COMFORTABLY IN BED. PATIENT IS ALERT AND ORIENTED X'2 4. AZERI SPEAKING BUT ABLE TO MAKE NEEDS KNOWN. SAFETY INITIATED. CALL LIGHT WITHIN REACH. AV SHUNT ON THE R UPPER ARM DRESSING IS DRY AND INTACT. TELE IS SR 75-80'S. WILL CONTINUE TO MONITOR.
[2016-11-29 20:00] VITALS: BP 134/61
[2016-11-29] MEDS: ATORVASTATIN 20 MG TABLET PO SCH (20:27)
[2016-11-30] VITALS: BP 123/57
[2016-11-30] MEDS: ACETAMINOPHEN 325 MG TABLET PO PRN (02:19)
[2016-11-30 04:00] VITALS: BP 115/50
[2016-11-30] MEDS: MORPHINE SULFATE 4 MG/1 ML DISP.SYRIN IV PRN ×2 (04:30→12:38)
[2016-11-30] MEDS: hydrALAZINE HCL 50 MG TABLET PO SCH ×3 (05:08→22:00)
[2016-11-30] MEDS: PANTOPRAZOLE SODIUM 40 MG TABLET.DR PO SCH (06:04)
[2016-11-30 06:45] LABS: BASOPHILS % (AUTO) 0.3 % (0.0-2.0); EOSINOPHILS # (AUTO) 0.3 K/uL (0.0-0.7); EOSINOPHILS % (AUTO) 2.6 % (0.0-7.0); LYMPHOCYTES # (AUTO) 1.3 K/UL (0.8-4.8); LYMPHOCYTES % (AUTO) 11.2 % (20.5-51.5); MEAN CORPUSCULAR HEMOGLOBIN 29.6 UUG (27.0-31.0); MEAN CORPUSCULAR HGB CONC 32 g/dL (32.0-37.0); MEAN CORPUSCULAR VOLUME 92.6 FL (81.0-99.0); MONOCYTES # (AUTO) 1.2 K/UL (0.1-1.30); MONOCYTES % (AUTO) 10.6 % (0.0-11.0); NEUTROPHILS # (AUTO) 8.5 K/UL (1.8-8.9); NEUTROPHILS % (AUTO) 75.3 % (38.5-71.5); PLATELET COUNT (AUTO) 208 K/UL (150-450); RED BLOOD CELL COUNT(AUTO) 2.54 MIL/UL (4.2-5.4); WHITE BLOOD COUNT (AUTO) 11.3 K/UL (4.0-11.2)
--- NOTE | 2016-11-30 06:55 | NUR ---
RECEIVED CALL FROM LAB, SPOKE TO [facility] CRITICAL LAB VALUE H&H 7.5.5.
[2016-11-30 06:56] LABS: HEMATOCRIT 23.5 % (37-47)
[2016-11-30 06:57] LABS: HEMOGLOBIN 7.5 G/DL (12.0-16.0)
--- NOTE | 2016-11-30 06:59 | NUR ---
INFORMED DR. LEWIS ABOUT CRITICAL LAB VALUE H&H ..
--- NOTE | 2016-11-30 07:03 | NUR ---
PATIENT SLEPT INTERMITTENTLY T/O THE NIGHT. COMPLAINED OF PAIN AND ITCHING, ADMINISTERED MEDICATION, STATED RELIEF. NO ACUTE DISTRESS NOTED. AV SHUNT ON THE RIGHT UPPER ARM DRESSING [id number]. O2 SAT ON PHALANGES TENDS TO RUN LOW. PLACED AN O2 SENSOR ON LEFT EAR. O2 SAT 96%. SWELLING ON BILATERAL ARMS, RIGHT LEG NOTED. ANURIC T/O SHIFT. TURN AND REPOSITIONED. SAFETY AND COMFORT MAINTAINED T/O SHIFT.
[2016-11-30 07:21] LABS: BILIRUBIN,TOTAL 0.4 mg/dL (0.2-1.0); MAGNESIUM 2.5 mg/dL (1.8-2.4); PHOSPHOROUS 5.9 mg/dL (2.5-4.9); TOTAL PROTEIN, SERUM 6.7 g/dL (6.4-8.2)
[2016-11-30 07:35] LABS: CREATININE 7.9 mg/dL (0.6-1.3)
--- NOTE | 2016-11-30 08:00 | NUR ---
RECEIVED PATIENT AWAKE ALERT AND ORIENTED DENIES PAIN OR DISCOMFORTS AT THIS TIME PATIENT COMPLAINED OF ITCHING ALL OVER HER BODY NO REDNESS NOTED OFFERED TO GIVE HER BENADRYL ORDERED BUT SHE DECLINED STATED THAT SHE DOES NOT WANT ONE AT THE MOMENT LOTION APPLIED ALL OVER HER SKIN AND WILL OBSERVE.AV SHUNT LEFT UPPER ARM IS INTACT WITH BRUIT AND THRILL NOTED EDEMA LEFT ARM RIGHT ARM AND RIGHT LEG ENCOURAGED TO ELEVATE ASSISTED NEEDED.
[2016-11-30] MEDS: SEVELAMER CARBONATE 800 MG TABLET PO SCH ×3 (08:17→17:38)
[2016-11-30] MEDS: CLONIDINE HCL 0.1 MG TABLET PO SCH ×2 (08:18→17:38)
[2016-11-30] MEDS: ISOSORBIDE DINITRATE 20 MG TABLET PO SCH ×2 (08:18→20:19)
[2016-11-30] MEDS: NIFEdipine XL 60 MG TABSR PO SCH (08:19)
[2016-11-30 12:02] VITALS: BP 129/59
--- NOTE | 2016-11-30 12:53 | NUR ---
DIALYSIS COMPLETED AND ZERO WAS REMOVED AND PATIENT WAS MEDICATED FOR C/O PAIN AND CRAMPING IN HER RIGHT LEG/KNEE ORDERED
--- NOTE | 2016-11-30 15:28 | NUR ---
PATIENT SEEN BY DR ABEL AND HE IS AWARE OF THE LOW H/H 7.5/23.5 WITH ORDER TO GIVE THE PATIENT BLOOD TRANSFUSSION WITH NEXT DIALYSIS.
[2016-11-30 16:10] VITALS: BP 143/55
--- NOTE | 2016-11-30 17:44 | NUR ---
RESTING WITH HER FAMILY AT THE BEDSIDE WITH NO C/O AT THIS TIME.
--- NOTE | 2016-11-30 19:30 | NUR ---
RECEIVED PATIENT LAYING IN BED COMFORTABLY. NO ACUTE DISTRESS NOTED. SAFETY INITIATED. CALL LIGHT WITHIN REACH. AV SHUNT ON THE LEFT UPPER ARM, [id number]. DIALYSIS DONE TODAY IN THE AM SHIFT. NO OUTPUT. WILL CONTINUE TO MONITOR
[2016-11-30] MEDS: ATORVASTATIN 20 MG TABLET PO SCH (20:19)
[2016-11-30 20:35] VITALS: BP 142/62
--- NOTE | 2016-11-30 22:00 | NUR ---
PATIENT REFUSED B/P MED APRESOLINE 100 MG. RE CHECKED B/P = WNL
[2016-12-01] VITALS (11 sets, daily range): BP systolic 102–148; BP diastolic 44–65
[2016-12-01] MEDS: MORPHINE SULFATE 4 MG/1 ML DISP.SYRIN IV PRN (01:39)
[2016-12-01] MEDS: IBUPROFEN 600 MG TABLET PO PRN (05:36)
[2016-12-01] MEDS: hydrALAZINE HCL 50 MG TABLET PO SCH ×3 (05:36→21:32)
--- NOTE | 2016-12-01 05:36 | NUR ---
PATIENT REFUSED TO TAKE MOTRIN FOR PAIN. PATIENT STATES ALLERGIC TO MOTRIN. UNABLE TO RETURN MEDICATION.
[2016-12-01] MEDS: ACETAMINOPHEN 325 MG TABLET PO PRN ×3 (05:41→22:09)
--- NOTE | 2016-12-01 05:41 | NUR ---
PATIENT STATES SHE IS NOT ALLERGIC TO TYLENOL. ADMINISTERED TYLENOL FOR PATIENT PAIN WITH NO ALLERGIC REACTION. ENDORSED TO AM NURSE CAROL. WAGNER INFORMED PHARMACY.
[2016-12-01] MEDS: PANTOPRAZOLE SODIUM 40 MG TABLET.DR PO SCH (06:13)
--- NOTE | 2016-12-01 07:13 | NUR ---
NO CHANGES T/O SHIFT. NO ACUTE DISTRESS NOTED. SAFETY AND COMFORT MAINTAINED T/O SHIFT. PATIENT COMPLAINED OF PAIN IN THE RIGHT LEG. GAVE MEDICATION, STATED RELIEF. REFUSED APRESOLINE 100 MG, DOSE WAS DUE ON 2200. 1 UNIT OF BLOOD TO BE GIVEN WITH DIALYSIS IN THE AM. ENDORSED INFO TO THE AM NURSE. AV SHUNT ON THE RIGHT UPPER ARM IS INTACT WITH BRUIT AND THRILL. NO URINE AND NO BM T/O SHIFT. ALL NEEDS MET
[2016-12-01 07:34] LABS: BASOPHILS # (AUTO) 0.1 K/uL (0.0-8.0); BASOPHILS % (AUTO) 0.6 % (0.0-2.0); EOSINOPHILS # (AUTO) 0.3 K/uL (0.0-0.7); EOSINOPHILS % (AUTO) 2.6 % (0.0-7.0); HEMOGLOBIN 7.7 G/DL (12.0-16.0); LYMPHOCYTES # (AUTO) 0.9 K/UL (0.8-4.8); LYMPHOCYTES % (AUTO) 8.4 % (20.5-51.5); MEAN CORPUSCULAR HEMOGLOBIN 30.9 UUG (27.0-31.0); MEAN CORPUSCULAR HGB CONC 33 g/dL (32.0-37.0); MEAN CORPUSCULAR VOLUME 93.5 FL (81.0-99.0); MONOCYTES # (AUTO) 0.9 K/UL (0.1-1.30); MONOCYTES % (AUTO) 9.1 % (0.0-11.0); NEUTROPHILS # (AUTO) 8.2 K/UL (1.8-8.9); NEUTROPHILS % (AUTO) 79.3 % (38.5-71.5); PLATELET COUNT (AUTO) 203 K/UL (150-450); WHITE BLOOD COUNT (AUTO) 10.4 K/UL (4.0-11.2)
[2016-12-01 07:53] LABS: HEMATOCRIT 23.4 % (37-47)
[2016-12-01] MEDS: SEVELAMER CARBONATE 800 MG TABLET PO SCH ×3 (08:00→17:35)
[2016-12-01 08:08] LABS: BILIRUBIN,TOTAL 0.4 mg/dL (0.2-1.0); MAGNESIUM 2.3 mg/dL (1.8-2.4); PHOSPHOROUS 5.7 mg/dL (2.5-4.9); POTASSIUM 4.8 mmol/L (3.5-5.1); TOTAL PROTEIN, SERUM 6.7 g/dL (6.4-8.2)
[2016-12-01] MEDS: ISOSORBIDE DINITRATE 20 MG TABLET PO SCH ×2 (10:55→21:00)
[2016-12-01] MEDS: CLONIDINE HCL 0.1 MG TABLET PO SCH ×2 (10:55→17:34)
[2016-12-01] MEDS: NIFEdipine XL 60 MG TABSR PO SCH (10:56)
[2016-12-01] MEDS: ONDANSETRON 4 MG/2 ML VIAL IV PRN (18:12)
[2016-12-01] MEDS: HYDROCODONE/APAP 5-325MG TABLET PO PRN (18:48)
--- NOTE | 2016-12-01 19:45 | NUR ---
PT RECEIVED IN BED, AWAKE. DAUGHTER AT BEDSIDE. A/OX4. ABLE TO MAKE NEEDS KNOWN . V/S STABLE. NO ACUTE DISTRESS NOTED. NO COMPLAINTS OF PAIN AT THIS TIME. PT WAITING FOR BLOOD TRANSFUSION. CONSENT SIGNED. SAFETY MEASURES IMPLEMENTED. CALL LIGHT WITHIN REACH. WILL CONT TO MONITOR.
[2016-12-01] MEDS: ATORVASTATIN 20 MG TABLET PO SCH (21:00)
[2016-12-01] MEDS ORDERED: HYDR-3326 PO (21:29)
--- NOTE | 2016-12-02 01:06 | NUR ---
PT DISCHARGED. PT IN STABLE CONDITION. NO ACUTE DISTRESS NOTED. PT IV D/C. BELONGINGS RETURNED, BELONGING LIST SIGNED. DISCHARGE INSTRUCTION AND PRESCRIPTIONS PROVIDED.
[2016-12-02] MEDS ORDERED: glipiZIDE 5 MG TABLET PO SCH (07:30)
== END 2016-12-02 01:00 | disposition home health service (06) | DRG 391 ==
LOC: ER 18:55 → TELE 21:47 → MED 11-30 16:30
PROVIDERS: ADMIT Internal Medicine; ATTEND Internal Medicine
PROC: 5A1D60Z (ICD-10-PCS; principal; 2016-11-28)
PROC: 30233N1 Transfusion of Nonautologous Red Blood Cells into Peripheral Vein, Percutaneous Approach (ICD-10-PCS; 2016-11-30)
DX: A08.4 Viral intestinal infection, unspecified (principal); N18.6 End stage renal disease; I50.32 Chronic diastolic (congestive) heart failure; I13.2 Hypertensive heart and chronic kidney disease with heart failure and with stage 5 chronic kidney disease, or end stage renal disease; S32.501A Unspecified fracture of right pubis, initial encounter for closed fracture; J98.11 Atelectasis; E11.22 Type 2 diabetes mellitus with diabetic chronic kidney disease; E11.42 Type 2 diabetes mellitus with diabetic polyneuropathy; Z99.2 Dependence on renal dialysis; Z88.6 Allergy status to analgesic agent; Z88.5 Allergy status to narcotic agent; W19.XXXA Unspecified fall, initial encounter; Y92.009 Unspecified place in unspecified non-institutional (private) residence as the place of occurrence of the external cause; E11.65 Type 2 diabetes mellitus with hyperglycemia; Z91.81 History of falling; Z74.09 Other reduced mobility; I34.0 Nonrheumatic mitral (valve) insufficiency; F17.210 Nicotine dependence, cigarettes, uncomplicated; M19.90 Unspecified osteoarthritis, unspecified site; E11.40 Type 2 diabetes mellitus with diabetic neuropathy, unspecified; T82.7XXS Infection and inflammatory reaction due to other cardiac and vascular devices, implants and grafts, sequela; Y83.9 Surgical procedure, unspecified as the cause of abnormal reaction of the patient, or of later complication, without mention of misadventure at the time of the procedure; D63.8 Anemia in other chronic diseases classified elsewhere; I70.0 Atherosclerosis of aorta; E86.9 Volume depletion, unspecified; Z79.899 Other long term (current) drug therapy; Z80.0 Family history of malignant neoplasm of digestive organs
CPT/HCPCS: 36415; 71010; 72170; 73551; 83550; 83690; 83735; 84100; 85025; 86850; 86900; 86901; 86920; 93005; 97116; 97161; 97530; A4663; J1170; J1200; J2270; J2405; J7030; P9016-BL; P9021

== ENCOUNTER 2017-01-21 10:44 | Emergency (ER) | payer MEDICARE, MEDICAID ==
[~2017-01-21] VITALS: Ht 152.4 cm; Wt 45.4 kg
[~2017-01-21 10:44] MED LIST changes: +HYDR-3326 PO; -METR250T4 PO
--- NOTE | 2017-01-21 11:11 | NUR ---
Dr Decker at the bedside for eval and exam.
[2017-01-21] MEDS ORDERED: ONDANSETRON IV *ER 4 MG/2 ML VIAL IV ONE (11:30)
[2017-01-21] MEDS ORDERED: PANTOPRAZOLE SODIUM 40 MG VIAL IV ONE (11:30)
[2017-01-21] MEDS ORDERED: PANTOPRAZOLE SODIUM 40 MG VIAL ONE (11:40)
[2017-01-21] MEDS ORDERED: ONDANSETRON 4 MG/2 ML VIAL ONE (11:40)
--- NOTE | 2017-01-21 11:45 | NUR ---
Pt refused CT scan. ERMD aware.
[2017-01-21 11:51] LABS: BASOPHILS # (AUTO) 0.3 K/uL (0.0-8.0); BASOPHILS % (AUTO) 3.3 % (0.0-2.0); EOSINOPHILS # (AUTO) 0.4 K/uL (0.0-0.7); EOSINOPHILS % (AUTO) 3.8 % (0.0-7.0); HEMATOCRIT 34.7 % (37-47); HEMOGLOBIN 11.2 G/DL (12.0-16.0); LYMPHOCYTES # (AUTO) 1.1 K/UL (0.8-4.8); LYMPHOCYTES % (AUTO) 10.9 % (20.5-51.5); MEAN CORPUSCULAR HGB CONC 32 g/dL (32.0-37.0); MEAN CORPUSCULAR VOLUME 95.9 FL (81.0-99.0); MONOCYTES # (AUTO) 0.7 K/UL (0.1-1.30); MONOCYTES % (AUTO) 6.9 % (0.0-11.0); NEUTROPHILS # (AUTO) 7.3 K/UL (1.8-8.9); NEUTROPHILS % (AUTO) 75.1 % (38.5-71.5); PLATELET COUNT (AUTO) 164 K/UL (150-450); RED BLOOD CELL COUNT(AUTO) 3.62 MIL/UL (4.2-5.4); WHITE BLOOD COUNT (AUTO) 9.8 K/UL (4.0-11.2)
[2017-01-21 11:52] LABS: POTASSIUM 4.8 mmol/L (3.5-5.1)
[2017-01-21 11:55] LABS: CREATININE 8.6 mg/dL (0.6-1.3)
[2017-01-21 11:59] LABS: BILIRUBIN,TOTAL 0.4 mg/dL (0.2-1.0); TOTAL PROTEIN, SERUM 7.1 g/dL (6.4-8.2)
[2017-01-21] MEDS ORDERED: MORPHINE SULFATE 2 MG/1 ML DISP.SYRIN IV ONE (12:00)
[2017-01-21 12:02] LABS: BAND % (MANUAL) 5 % (0-10); EOSINOPHILS % (MANUAL) 7 % (0-8); LYMPHOCYTES % (MANUAL) 7 % (20-40); MONOCYTES % (MANUAL) 9 % (2-10); NEUTROPHILS % (MANUAL) 72 % (42-75)
[2017-01-21] MEDS ORDERED: MORPHINE SULFATE 2 MG/1 ML DISP.SYRIN ONE (12:12)
--- NOTE | 2017-01-21 12:29 | NUR ---
Patient is resting comfortably in bed with eyes closed, NAD noted.
--- NOTE | 2017-01-21 12:58 | NUR ---
pt agreed to ct. pt out of ER for ct.
--- NOTE | 2017-01-21 14:18 | NUR ---
IV removed. Catheter intact and site benign. Pressure and 4x4 gauze applied to site. No bleeding noted.
[2017-01-21 14:19] VITALS: BP 152/57
--- NOTE | 2017-01-21 14:20 | NUR ---
Patient discharged to home in stable conditon. Written and verbal after care instructions given. Patient verbalizes understanding of instructions.
== END 2017-01-21 14:20 | disposition home or self-care (01) ==
LOC: ER 10:44
DX: R51 Headache (principal); R11.2 Nausea with vomiting, unspecified; R42 Dizziness and giddiness; N39.0 Urinary tract infection, site not specified; I12.0 Hypertensive chronic kidney disease with stage 5 chronic kidney disease or end stage renal disease; E11.22 Type 2 diabetes mellitus with diabetic chronic kidney disease; E11.65 Type 2 diabetes mellitus with hyperglycemia; N18.6 End stage renal disease; Z99.2 Dependence on renal dialysis; Z88.6 Allergy status to analgesic agent
CPT/HCPCS: 36415; 70030-TC; 70450; 83690; 85025; 85610; 93005; A4663; C9113; J2270; J2405

== ENCOUNTER 2017-05-27 19:26 | Inpatient (IN) | payer MEDICARE, MEDICAID ==
[~2017-05-27] VITALS: Ht 154.9 cm; Wt 54.0 kg
[~2017-05-27 19:26] MED LIST changes: -HYDR-3326 PO; -ISOS20TA8 PO; -NIFE60TA2 PO; -SEVE800T7 PO
--- NOTE | 2017-05-28 01:30 | NUR ---
pt in bed, daughter at bedside. all pt needs attended and met. call light within reach
[2017-05-28 01:54] LABS: BASOPHILS % (AUTO) 0.2 % (0.0-2.0); CREATININE 5.6 mg/dL (0.6-1.3); EOSINOPHILS % (AUTO) 0.4 % (0.0-7.0); HEMATOCRIT 32.3 % (31.2-41.9); HEMOGLOBIN 10.9 g/dL (10.9-14.3); LYMPHOCYTES % (AUTO) 15.2 % (20.5-51.5); MEAN CORPUSCULAR HGB CONC 34 g/dL (32.3-35.6); MEAN CORPUSCULAR VOLUME 92.2 fL (75.5-95.3); MONOCYTES # (AUTO) 0.4 K/uL (2.0-10.0); MONOCYTES % (AUTO) 6.8 % (0.0-11.0); NEUTROPHILS # (AUTO) 4.9 K/uL (1.8-8.9); NEUTROPHILS % (AUTO) 77.4 % (38.5-71.5); PLATELET COUNT (AUTO) 100 K/uL (179-408); POTASSIUM 3.7 mmol/L (3.5-5.1); WHITE BLOOD COUNT (AUTO) 6.4 K/uL (3.8-11.8)
[2017-05-28 02:07] LABS: BILIRUBIN,DIRECT 0.2 mg/dL (0.0-0.2); BILIRUBIN,TOTAL 0.4 mg/dL (0.2-1.0); TOTAL PROTEIN, SERUM 6.6 g/dL (6.4-8.2)
[2017-05-28] MEDS ORDERED: hydrALAZINE HCL 20 MG/1 ML VIAL IV ONE (02:45)
[2017-05-28] MEDS ORDERED: ONDANSETRON IV *ER 4 MG/2 ML VIAL IV ONE ×2 (02:45→04:15)
[2017-05-28] MEDS ORDERED: MORPHINE SULFATE 4 MG/1 ML DISP.SYRIN IV ONE (02:45)
--- NOTE | 2017-05-28 04:00 | NUR ---
pt noted with dry heaving, ANATOLIY BOWER made aware.
[2017-05-28] MEDS ORDERED: ONDANSETRON 4 MG/2 ML VIAL ONE ×2 (04:24→07:57)
[2017-05-28] MEDS ORDERED: LABETALOL HCL 100 MG/20 ML VIAL IV ONE (05:30)
[2017-05-28] MEDS ORDERED: METOCLOPRAMIDE HCL 10 MG/2 ML VIAL IV ONE (05:30)
--- NOTE | 2017-05-28 05:38 | NUR ---
pt noted with an episode of emesis, ER MD made aware.
[2017-05-28] MEDS ORDERED: METOCLOPRAMIDE HCL 10 MG/2 ML VIAL ONE (05:57)
[2017-05-28] MEDS ORDERED: LABETALOL HCL 100 MG/20 ML VIAL ONE (05:57)
[2017-05-28] MEDS ORDERED: Z GUARD REMEDY PASTE 57 GM TUBE TOP PRN (06:15)
[2017-05-28] MEDS ORDERED: MAGNESIUM HYDROXIDE 30 ML LIQUID UDC PO PRN ×2 (06:15→14:15)
[2017-05-28] MEDS ORDERED: ACETAMINOPHEN 325 MG TABLET PO PRN ×2 (06:15→14:15)
[2017-05-28] MEDS ORDERED: HYDROCODONE/APAP 5-325MG TABLET PO PRN ×2 (06:15→14:15)
[2017-05-28] MEDS ORDERED: HYDROMORPHONE 1 MG/1 ML DISP.SYRIN IV PRN (06:15)
--- NOTE | 2017-05-28 06:38 | NUR ---
PATIENT IN BED, NO ACUTE DISTRESS. STATES NAUSEA IS IMPROVED. WILL CONTINUE TO MONITOR.
--- NOTE | 2017-05-28 06:39 | NUR ---
ER AWARE OF PATIENT BLOOD PRESSURE TREND
[2017-05-28] MEDS ORDERED: IOHEXOL 350 100 ML INFUS..BTL ONE (07:12)
[2017-05-28] MEDS ORDERED: IV NORMAL SALINE 250 ML IV ONE (07:12)
--- NOTE | 2017-05-28 07:13 | NUR ---
Report given to Jean MORENO
[2017-05-28] MEDS: NITROGLYCERIN OINT 1 GM PACKET TP SCH ×3 (07:27→21:23)
--- NOTE | 2017-05-28 07:27 | NUR ---
pt is resting in bed comfortably. no s/s of acute distress at this time. continue to monitor the pt.
[2017-05-28] MEDS: ONDANSETRON 4 MG/2 ML VIAL IV PRN ×3 (07:39→23:28)
[2017-05-28] MEDS ORDERED: NITROGLYCERIN OINT 1 GM PACKET TP ONE (07:42)
--- NOTE | 2017-05-28 08:34 | NUR ---
PICC LINE JOSH HERR WAS CALLED. HE IS GOING TO BE AVAILABLE IN AFTERNOON. DR DAIGLE NOTIFIED.
[2017-05-28] MEDS: ASPIRIN 81 MG TAB.CHEW PO SCH (09:19)
[2017-05-28] MEDS: CLONIDINE HCL 0.1 MG TABLET PO SCH ×2 (09:19→17:09)
[2017-05-28] MEDS ORDERED: ASPIRIN 81 MG TAB.CHEW ONE (09:32)
[2017-05-28] MEDS ORDERED: CLONIDINE HCL 0.1 MG TABLET ONE (09:33)
[2017-05-28] MEDS: hydrALAZINE HCL 20 MG/1 ML VIAL IV PRN (11:02)
[2017-05-28] MEDS ORDERED: hydrALAZINE HCL 20 MG/1 ML VIAL ONE (11:15)
--- NOTE | 2017-05-28 13:01 | NUR ---
PT WAS TRANSFERED TO ROOM #212. REPORT WAS GIVEN TO TOOL MECHANIC. NO S/S OF ACUTE DISTRESS AT THIS TIME.
[2017-05-28 13:18] VITALS: BP 193/68
--- NOTE | 2017-05-28 13:25 | NUR ---
Received from ER, per tomas, this 61 yo female, with the diagnosis of Chest pain. Transferred to bed comfortably. Routine admission care rendered. Awake, alert, oriented x 4, able to move all extremities on purpose but generally weak. O2 at 2L/NC with O2 sat of 97%. Placed on Tele SR 70. Right AVF. left hand Saline lock #22. Noted elevated BP, will give due BP meds. Complaining of nausea and right chest and shoulder pain
[2017-05-28] MEDS: hydrALAZINE HCL 50 MG TABLET PO SCH ×2 (14:03→21:22)
[2017-05-28] MEDS: HYDROCODONE/APAP 10-325 MG TABLET PO PRN (14:04)
[2017-05-28] MEDS ORDERED: ZOLPIDEM 5 MG TABLET PO PRN (14:15)
[2017-05-28] MEDS ORDERED: DEXTROSE 50% 50 ML DISP.SYRIN IV PRN (14:15)
[2017-05-28] MEDS ORDERED: ONDANSETRON 4 MG/2 ML VIAL IV PRN (14:15)
[2017-05-28 15:15] VITALS: BP 178/69
[2017-05-28] MEDS ORDERED: IPRATROPIUM BROMIDE 0.5 MG/2.5 ML NEBU NEB PRN (15:30)
[2017-05-28] MEDS ORDERED: BUMETANIDE INJ 2 MG in IV DEXTROSE 5% 32 ML IV ONE (15:30)
[2017-05-28] MEDS ORDERED: ALBUTEROL SULFATE 2.5 MG/ 0.5 ML NEBU NEB PRN (15:30)
[2017-05-28] MEDS: methylPREDNISolone SOD SUCC 40 MG/ML VIAL IV SCH ×2 (17:08→21:22)
[2017-05-28] MEDS: AMLODIPINE 5 MG TABLET PO SCH (17:09)
[2017-05-28] MEDS: FUROSEMIDE 40 MG/4 ML VIAL IV SCH (17:09)
[2017-05-28] MEDS: BLOOD SUGAR DIAGNOSTIC 1 EACH STRIP VI SCH ×2 (17:10→21:09)
[2017-05-28] MEDS: INSULIN REGULAR, HUMAN 300 UNIT/3 ML VIAL SQ PRN ×2 (17:16→21:25)
--- NOTE | 2017-05-28 17:46 | NUR ---
Complaining of tingling of lower extremities. Repositioned in bed comfortably. Waiting for PICC line nurse
[2017-05-28 20:00] VITALS: BP 177/52
[2017-05-28] MEDS: ATORVASTATIN 20 MG TABLET PO SCH (21:20)
--- NOTE | 2017-05-28 22:34 | NUR ---
PT IN ROOM ALERT AWAKE IN NO ACUTE DISTRESS. NO S/S OF HYPER/HYPOGLYCEMIA. STATES SHE HAS SOME GENERALIZED PAIN BUT ABLE TO TOLERATE IT. BP NOTED 177/52. ROUTINE HS MEDICATIONS GIVEN. CONTINUE TO MONITOR. CALL LIGHT PLACED WITHIN REACH.
[2017-05-29] VITALS: BP 167/42
[2017-05-29] MEDS: hydrALAZINE HCL 20 MG/1 ML VIAL IV PRN ×2 (01:01→11:29)
--- NOTE | 2017-05-29 01:04 | NUR ---
bp 167/45. PRN hydralazine given IV. continue to monitor.
[2017-05-29 04:00] VITALS: BP 141/63
[2017-05-29] MEDS: hydrALAZINE HCL 50 MG TABLET PO SCH ×3 (05:23→21:56)
[2017-05-29] MEDS: methylPREDNISolone SOD SUCC 40 MG/ML VIAL IV SCH ×3 (05:37→21:40)
[2017-05-29] MEDS: HYDROMORPHONE 2 MG/1 ML DISP.SYRIN IV PRN ×2 (05:47→17:03)
[2017-05-29] MEDS ORDERED: methylPREDNISolone SOD SUCC 125 MG/2 ML VIAL ONE (05:53)
[2017-05-29] MEDS: NITROGLYCERIN OINT 1 GM PACKET TP SCH ×3 (06:10→21:40)
[2017-05-29] MEDS: BLOOD SUGAR DIAGNOSTIC 1 EACH STRIP VI SCH ×4 (06:54→21:53)
--- NOTE | 2017-05-29 07:10 | NUR ---
RECEIVED REPORT FROM AIRCRAFT SHEET METAL MECHANIC NURSE, PATIENT AWAKE IN BED, TRYING TO GET OUT OF BED TO WALKER STATED THAT HER LEGS HURT. PATIENT WAS ASSISTED BACK TO BED, AND ASSURED THAT SHE WILL HAVE A CHANCE TO WALK TODAY.
[2017-05-29 08:29] LABS: BASOPHILS % (AUTO) 0.1 % (0.0-2.0); HEMATOCRIT 30.9 % (31.2-41.9); HEMOGLOBIN 10.1 g/dL (10.9-14.3); LYMPHOCYTES # (AUTO) 0.4 K/uL (20.0-40.0); LYMPHOCYTES % (AUTO) 4.8 % (20.5-51.5); MEAN CORPUSCULAR HEMOGLOBIN 30.9 uug (24.7-32.8); MEAN CORPUSCULAR HGB CONC 33 g/dL (32.3-35.6); MEAN CORPUSCULAR VOLUME 94.9 fL (75.5-95.3); MONOCYTES # (AUTO) 0.1 K/uL (2.0-10.0); MONOCYTES % (AUTO) 1.5 % (0.0-11.0); NEUTROPHILS # (AUTO) 6.9 K/uL (1.8-8.9); NEUTROPHILS % (AUTO) 93.6 % (38.5-71.5); PLATELET COUNT (AUTO) 115 K/uL (179-408); RED BLOOD CELL COUNT(AUTO) 3.25 MIL/uL (3.63-4.92); WHITE BLOOD COUNT (AUTO) 7.4 K/uL (3.8-11.8)
[2017-05-29] MEDS: INSULIN REGULAR, HUMAN 300 UNIT/3 ML VIAL SQ PRN ×3 (08:37→16:58)
[2017-05-29] MEDS: FUROSEMIDE 40 MG/4 ML VIAL IV SCH (09:34)
[2017-05-29] MEDS: ASPIRIN 81 MG TAB.CHEW PO SCH (09:35)
[2017-05-29] MEDS: AMLODIPINE 5 MG TABLET PO SCH (09:40)
[2017-05-29] MEDS: CLONIDINE HCL 0.1 MG TABLET PO SCH ×2 (09:40→17:00)
[2017-05-29] MEDS ORDERED: IV NORMAL SALINE 250 ML IV ONE (09:55)
[2017-05-29] MEDS ORDERED: IOHEXOL 350 100 ML INFUS..BTL ONE (09:55)
[2017-05-29 11:03] VITALS: BP 178/54
[2017-05-29] MEDS ORDERED: DEXTROSE 50% 50 ML DISP.SYRIN IV PRN (11:15)
[2017-05-29] MEDS ORDERED: FUROSEMIDE 20 MG/2 ML VIAL IV ONE (11:15)
[2017-05-29] MEDS: NORMAL SALINE IV SCH (12:00)
[2017-05-29] MEDS ORDERED: AZITHROMYCIN IV 250 MG in IV DEXTROSE 5% 250 ML IV SCH (12:00)
[2017-05-29] MEDS: AZITHROMYCIN IV SCH (12:00)
[2017-05-29 15:11] VITALS: BP 159/42
--- NOTE | 2017-05-29 16:30 | NUR ---
PATIENT HAVING CHEST PAIN AND EXTREMELY ELEVATED BLOOD SUGAR LEVELS, CALLED DB MARIE AND RECEIVED ORDERS FOR LONG ACTING INSULIN
--- NOTE | 2017-05-29 17:00 | NUR ---
PATIENT HAVING DIALYSIS, TOLERATING WELL.
[2017-05-29 18:28] LABS: CREATININE 7.2 mg/dL (0.6-1.3); MAGNESIUM 2.4 mg/dL (1.8-2.4); PHOSPHOROUS 5.7 mg/dL (2.5-4.9)
--- NOTE | 2017-05-29 19:02 | NUR ---
PATIENT CURRENTLY IN BED HAVING DIALYSIS STILL, TOLERATING WELL. NO EVIDENCE OF DISTRESS NOTED AT THIS TIME, BED IN LOW POSITION SIDE RIAILS UP X2. PATIENT HAD HER CTA PERFORMED TODAY.
[2017-05-29 20:00] VITALS: BP 149/52
--- NOTE | 2017-05-29 20:00 | NUR ---
nsg: pt a/o x 4, no acute distress noted. denies discomfort. had hemodialysis tonight, 2L out. v/s stable. tele, SR. ambulatory with fww, with standby assist. daughter at the bedside. cont to monitor.
[2017-05-29] MEDS: ATORVASTATIN 20 MG TABLET PO SCH (21:40)
[2017-05-29] MEDS: INSULIN REGULAR, HUMAN 300 UNITS/3 ML VIAL SQ PRN (21:46)
[2017-05-30] VITALS: BP 178/55
--- NOTE | 2017-05-30 00:30 | NUR ---
opalg: pt endorsed to JOSH Vasquez.
--- NOTE | 2017-05-30 00:35 | NUR ---
RECEIVED SBAR REPORT FROM SONAL/JOSH TO CONTINUE CARE,PT'S A/A/O X4;SITTING @ CHAIR;PER REPORT PT HAD HIGH BP(SEE RECORD) AT THIS TIME;EDUCATED TO PT TO BE ON BED REST;WILL GIVE HYDRALAZINE(SEE ORDER PRN MD'S ORDER);TRANSLATED BY PT'S DAUGHTER WHO STAYED AT THE BEDSIDE;PT VERBALIZED UNDERSTANDING AND COOPERATIVE.TELEMETRY'S SR 70/MIN AT THIS TIME.KEPT COMFORT.CALL-LIGHT WITHIN REACH.CONTINUED MONITORING TO PT.
[2017-05-30] MEDS: hydrALAZINE HCL 20 MG/1 ML VIAL IV PRN (00:37)
--- NOTE | 2017-05-30 02:52 | NUR ---
PT'S STILL AWAKE;C/O H/A 3-09/01'TYLENOL 650 MG PO X1 TO PT;EDUCATED TO PT;PT VERBALIZED UNDERSTANDING AND TOLERATED WELL NOTED.PT'S DAUGHTER AT THE BEDSIDE.TELEMETRY'S SR 70/MIN.KEPT CALL-LIGHT WITHIN REACH.
[2017-05-30 04:00] VITALS: BP 186/62
[2017-05-30] MEDS: hydrALAZINE HCL 50 MG TABLET PO SCH ×3 (05:31→21:32)
[2017-05-30] MEDS: NITROGLYCERIN OINT 1 GM PACKET TP SCH ×3 (05:31→21:32)
[2017-05-30] MEDS: BLOOD SUGAR DIAGNOSTIC 1 EACH STRIP VI SCH ×5 (06:18→20:17)
[2017-05-30] MEDS: methylPREDNISolone SOD SUCC 40 MG/ML VIAL IV SCH ×3 (06:19→20:25)
--- NOTE | 2017-05-30 06:30 | NUR ---
PT'S COMFORTABLE ON BED;DENIED OF PAIN AT THIS TIME.NO DISTRESS NOTED IN THE SHIFT.PT REMAINED FREE FROM INJURY NOTED.
[2017-05-30 07:27] LABS: BASOPHILS % (AUTO) 0.1 % (0.0-2.0); HEMATOCRIT 30.3 % (31.2-41.9); HEMOGLOBIN 9.8 g/dL (10.9-14.3); LYMPHOCYTES # (AUTO) 0.5 K/uL (20.0-40.0); LYMPHOCYTES % (AUTO) 4.2 % (20.5-51.5); MEAN CORPUSCULAR HEMOGLOBIN 30.5 uug (24.7-32.8); MEAN CORPUSCULAR HGB CONC 33 g/dL (32.3-35.6); MONOCYTES # (AUTO) 0.3 K/uL (2.0-10.0); MONOCYTES % (AUTO) 2.5 % (0.0-11.0); NEUTROPHILS # (AUTO) 11.9 K/uL (1.8-8.9); NEUTROPHILS % (AUTO) 93.2 % (38.5-71.5); PLATELET COUNT (AUTO) 142 K/uL (179-408); RED BLOOD CELL COUNT(AUTO) 3.22 MIL/uL (3.63-4.92); WHITE BLOOD COUNT (AUTO) 12.8 K/uL (3.8-11.8)
[2017-05-30 07:28] LABS: CREATININE 5.9 mg/dL (0.6-1.3); MAGNESIUM 2.3 mg/dL (1.8-2.4); PHOSPHOROUS 5.1 mg/dL (2.5-4.9); POTASSIUM 5.2 mmol/L (3.5-5.1)
[2017-05-30] MEDS: ASPIRIN 81 MG TAB.CHEW PO SCH (09:21)
[2017-05-30] MEDS: AMLODIPINE 5 MG TABLET PO SCH (09:23)
[2017-05-30] MEDS: CLONIDINE HCL 0.1 MG TABLET PO SCH ×2 (09:23→17:09)
[2017-05-30 11:33] VITALS: BP 148/60
[2017-05-30] MEDS: INSULIN REGULAR, HUMAN 300 UNIT/3 ML VIAL SQ PRN ×3 (11:35→17:15)
[2017-05-30] MEDS: NORMAL SALINE IV SCH (12:33)
[2017-05-30] MEDS: AZITHROMYCIN IV SCH (12:33)
[2017-05-30] MEDS: HYDROCODONE/APAP 10-325 MG TABLET PO PRN (15:37)
[2017-05-30 20:00] VITALS: BP 165/62
--- NOTE | 2017-05-30 20:15 | NUR ---
PATIENT AWAKE IN ROOM SITTING IN CHAIR. PATIENT IS A/O X4. CYMRAES SPEAKING BUT ABLE TO MAKE SIMPLE NEEDS KNOWN. C/O PAIN IN BILATERAL KNEES. MID-LINE NOTED TO LEFT UPPER ARM, INTACT AND PATENT. CALL LIGHT IN REACH. ALL NEEDS ATTENDED. WILL CONTINUE TO MONITOR.
[2017-05-30] MEDS: INSULIN DETEMIR 300 UNIT/3 ML CARTRIDGE SQ SCH (20:19)
[2017-05-30] MEDS: ATORVASTATIN 20 MG TABLET PO SCH (20:24)
[2017-05-30] MEDS: HYDROMORPHONE 2 MG/1 ML DISP.SYRIN IV PRN (20:26)
--- NOTE | 2017-05-30 20:30 | NUR ---
PATIENT GIVEN DILAUDID 1MG IV PRN PER RN FOR PAIN. WILL CONTINUE TO MONITOR.
[2017-05-30] MEDS ORDERED: INSULIN GLARGINE,HUM 300 UNITS/3 ML CARTRIDGE SQ SCH (21:00)
[2017-05-30] MEDS: ONDANSETRON 4 MG/2 ML VIAL IV PRN (21:42)
[2017-05-31 05:30] VITALS: BP 186/63
[2017-05-31] MEDS: NITROGLYCERIN OINT 1 GM PACKET TP SCH ×3 (06:18→21:50)
[2017-05-31] MEDS: hydrALAZINE HCL 50 MG TABLET PO SCH ×3 (06:18→21:49)
[2017-05-31 06:58] LABS: HEMATOCRIT 32.1 % (31.2-41.9); HEMOGLOBIN 10.3 g/dL (10.9-14.3); LYMPHOCYTES # (AUTO) 0.4 K/uL (20.0-40.0); LYMPHOCYTES % (AUTO) 2.9 % (20.5-51.5); MEAN CORPUSCULAR HEMOGLOBIN 30.1 uug (24.7-32.8); MEAN CORPUSCULAR HGB CONC 32 g/dL (32.3-35.6); MEAN CORPUSCULAR VOLUME 93.7 fL (75.5-95.3); MONOCYTES # (AUTO) 0.3 K/uL (2.0-10.0); NEUTROPHILS # (AUTO) 14.1 K/uL (1.8-8.9); NEUTROPHILS % (AUTO) 95.1 % (38.5-71.5); PLATELET COUNT (AUTO) 165 K/uL (179-408); RED BLOOD CELL COUNT(AUTO) 3.42 MIL/uL (3.63-4.92); WHITE BLOOD COUNT (AUTO) 14.8 K/uL (3.8-11.8)
[2017-05-31 07:01] LABS: CREATININE 6.4 mg/dL (0.6-1.3); MAGNESIUM 2.2 mg/dL (1.8-2.4); PHOSPHOROUS 6.1 mg/dL (2.5-4.9); POTASSIUM 5.4 mmol/L (3.5-5.1)
[2017-05-31] MEDS: BLOOD SUGAR DIAGNOSTIC 1 EACH STRIP VI SCH ×5 (07:01→20:17)
[2017-05-31] MEDS: INSULIN REGULAR, HUMAN 300 UNIT/3 ML VIAL SQ PRN ×4 (07:02→17:16)
--- NOTE | 2017-05-31 08:00 | NUR ---
Sherie LUIS notified of rechecked bs of 480 new order received for another 20 units of regular insulin. Midline intact on left arm. Will monitor patient. Call light is within reach.
[2017-05-31] MEDS: CLONIDINE HCL 0.1 MG TABLET PO SCH ×2 (08:28→17:12)
[2017-05-31] MEDS: AMLODIPINE 5 MG TABLET PO SCH (08:28)
[2017-05-31] MEDS: ASPIRIN 81 MG TAB.CHEW PO SCH (08:28)
[2017-05-31] MEDS: methylPREDNISolone SOD SUCC 40 MG/ML VIAL IV SCH ×2 (08:30→20:40)
[2017-05-31] MEDS: AZITHROMYCIN IV SCH (13:21)
[2017-05-31] MEDS: NORMAL SALINE IV SCH (13:21)
[2017-05-31 16:03] VITALS: BP 162/62
[2017-05-31 19:00] VITALS: BP 193/63
[2017-05-31] MEDS: INSULIN REGULAR, HUMAN 300 UNITS/3 ML VIAL SQ PRN (20:18)
[2017-05-31] MEDS: INSULIN DETEMIR 300 UNIT/3 ML CARTRIDGE SQ SCH (20:18)
--- NOTE | 2017-05-31 20:30 | NUR ---
PATIENT AWAKE, SITTING IN CHAIR IN ROOM. A/O X4. SENEGALESE SPEAKING BUT ABLE TO MAKE NEEDS KNOWN. UNDERSTANDS MINIMAL [place]GI[place]. C/O PAIN IN BILATERAL LEGS. BP ELEVATED. ALL OTHER VSS. MID-LINE INTACT AND NOTED TO LEFT UPPER ARM. NO RESP. DISTRESS NOTED. CALL LIGHT IN REACH. ALL NEEDS ATTENDED. WILL CONTINUE TO MONITOR AND ASSESS.
[2017-05-31] MEDS: ATORVASTATIN 20 MG TABLET PO SCH (20:32)
[2017-05-31] MEDS: HYDROMORPHONE 2 MG/1 ML DISP.SYRIN IV PRN (20:41)
[2017-05-31] MEDS: ONDANSETRON 4 MG/2 ML VIAL IV PRN (20:41)
--- NOTE | 2017-05-31 20:45 | NUR ---
PATIENT GIVEN DILAUDID 1MG IV PRN FOR PAIN AND ZOFRAN 4MG IV PRN FOR NAUSEA PER RN. DAUGHTER AT BEDSIDE. CALL LIGHT IN REACH. ALL NEEDS ATTENDED.
--- NOTE | 2017-05-31 21:30 | NUR ---
PAIN MEDICATION AND NAUSEA MEDICATION EFFECTIVE. PATIENT SITTING IN CHAIR AT BEDSIDE WITH DAUGHTER PRESENT IN THE ROOM. CALL LIGHT IN REACH. ALL NEEDS ATTENDED. WILL CONTINUE TO MONITOR.
[2017-06-01] MEDS: HYDROMORPHONE 2 MG/1 ML DISP.SYRIN IV PRN ×2 (00:25→22:25)
[2017-06-01] MEDS: ONDANSETRON 4 MG/2 ML VIAL IV PRN ×2 (03:02→22:24)
[2017-06-01 04:45] VITALS: BP 191/70
[2017-06-01] MEDS: hydrALAZINE HCL 50 MG TABLET PO SCH ×3 (05:07→23:08)
[2017-06-01] MEDS: NITROGLYCERIN OINT 1 GM PACKET TP SCH ×3 (05:07→23:07)
--- NOTE | 2017-06-01 05:10 | NUR ---
PATIENT GIVEN ROUTINE HYDRALAZINE 100MG PO AND ROUTINE NITRO-BID 1GM ORDERED. BP 191/70. ALL OTHER VSS. PATIENT C/O OF SLIGHT HEADACHE, BUT DENIES NEED FOR ANY TYLENOL AT THIS TIME. WILL CONTINUE TO MONITOR. DAUGHTER AT BEDSIDE.
[2017-06-01 05:34] VITALS: BP 184/68
--- NOTE | 2017-06-01 05:38 | NUR ---
RE-CHECKED BP 184/68. ALL OTHER VSS. WILL CONTINUE TO MONITOR AND FURTHER ASSESS.
--- NOTE | 2017-06-01 06:30 | NUR ---
PATIENT AWAKE, SITTING IN CHAIR AT BEDSIDE WITH DAUGHTER. CHECKED AM BLOOD SUGAR AND RECEIVED 49. PATIENT IS A/O X3 AND ASYMPTOMATIC. PATIENT GIVEN JUICE AND LAB CALLED FOR STAT DRAW. WILL CONTINUE TO MONITOR AND RE-ASSESS BS.
[2017-06-01] MEDS: BLOOD SUGAR DIAGNOSTIC 1 EACH STRIP VI SCH ×5 (06:34→20:39)
--- NOTE | 2017-06-01 06:54 | NUR ---
RECHECKED PATIENTS BLOOD SUGAR, NOW 79. WILL CONTINUE TO MONITOR.
--- NOTE | 2017-06-01 07:35 | NUR ---
PATIENT AWAKE, SITTING IN CHAIR . PATIENT IS A/O X3 . WILL CONTINUE TO MONITOR ,CALL LIGHT WITH IN REACH
[2017-06-01] MEDS: AMLODIPINE 5 MG TABLET PO SCH (08:14)
[2017-06-01] MEDS: CLONIDINE HCL 0.1 MG TABLET PO SCH ×2 (08:14→16:00)
[2017-06-01] MEDS: ASPIRIN 81 MG TAB.CHEW PO SCH (08:14)
[2017-06-01] MEDS: methylPREDNISolone SOD SUCC 40 MG/ML VIAL IV SCH (08:18)
[2017-06-01] MEDS: hydrALAZINE HCL 20 MG/1 ML VIAL IV PRN (10:58)
[2017-06-01 11:11] VITALS: BP 191/82
[2017-06-01] MEDS ORDERED: AMLODIPINE 5 MG TABLET PO ONE (11:15)
[2017-06-01] MEDS: NORMAL SALINE IV SCH (11:29)
[2017-06-01] MEDS: AZITHROMYCIN IV SCH (11:29)
[2017-06-01] MEDS: INSULIN REGULAR, HUMAN 300 UNIT/3 ML VIAL SQ PRN ×2 (11:36→16:09)
[2017-06-01] MEDS: METOPROLOL TARTRATE 50 MG TABLET PO SCH ×2 (13:39→23:07)
[2017-06-01] MEDS ORDERED: hydrALAZINE HCL 50 MG TABLET PO SCH (14:00)
[2017-06-01 15:30] VITALS: BP 157/55
[2017-06-01] MEDS: HYDROCODONE/APAP 10-325 MG TABLET PO PRN (16:00)
[2017-06-01 19:00] VITALS: BP 137/75
--- NOTE | 2017-06-01 20:00 | NUR ---
RECEIVED PATIENT AWAKE IN BED. A/O X3. VSS. C/O MILD DISCOMFORT IN BILATERAL LOWER EXTREMITIES. NO RESP. DISTRESS NOTED. MID-LINE NOTED TO LEFT UPPER ARM. CALL LIGHT IN REACH. ALL NEEDS ATTENDED. WILL CONTINUE TO MONITOR.
[2017-06-01] MEDS: INSULIN REGULAR, HUMAN 300 UNITS/3 ML VIAL SQ PRN (20:41)
[2017-06-01] MEDS ORDERED: INSULIN DETEMIR 300 UNIT/3 ML CARTRIDGE SQ SCH (21:00)
[2017-06-01] MEDS: ATORVASTATIN 20 MG TABLET PO SCH (23:07)
--- NOTE | 2017-06-02 01:25 | NUR ---
PATIENT ASLEEP. NO RESP. DISTRESS NOTED. DAUGHTER AT BEDSIDE. WILL CONTINUE TO MONITOR.
[2017-06-02] MEDS: HYDROMORPHONE 2 MG/1 ML DISP.SYRIN IV PRN (02:03)
[2017-06-02 04:00] VITALS: BP 162/56
[2017-06-02] MEDS: METOPROLOL TARTRATE 50 MG TABLET PO SCH ×2 (06:07→14:31)
[2017-06-02] MEDS: NITROGLYCERIN OINT 1 GM PACKET TP SCH ×2 (06:08→14:32)
[2017-06-02] MEDS: hydrALAZINE HCL 50 MG TABLET PO SCH ×2 (06:09→14:32)
[2017-06-02] MEDS: BLOOD SUGAR DIAGNOSTIC 1 EACH STRIP VI SCH ×2 (06:32→11:40)
--- NOTE | 2017-06-02 08:00 | NUR ---
AWAKE ALERT SPEAK KOREAN AND LITTLE [place] COOPERATE WELL NO OPAIN OR SOB STILL WEAK OOB AMB USE FWW AND UP IN CHAIR THIS AM WITH CALL SMITH IN REACH
[2017-06-02] MEDS: ASPIRIN 81 MG TAB.CHEW PO SCH (08:53)
[2017-06-02] MEDS: CLONIDINE HCL 0.1 MG TABLET PO SCH (08:53)
[2017-06-02] MEDS: INSULIN REGULAR, HUMAN 300 UNIT/3 ML VIAL SQ PRN ×2 (08:56→11:47)
[2017-06-02] MEDS ORDERED: AMLODIPINE 10 MG TABLET PO SCH (09:00)
[2017-06-02] MEDS ORDERED: methylPREDNISolone SOD SUCC 40 MG/ML VIAL IV SCH (09:00)
[2017-06-02 11:00] VITALS: BP 166/49
[2017-06-02] MEDS: AZITHROMYCIN IV SCH (11:38)
[2017-06-02] MEDS: NORMAL SALINE IV SCH (11:38)
--- NOTE | 2017-06-02 12:00 | NUR ---
RESTING WELL ACCU CHECK IMPROVING POSS D/C HOME TODAY
--- NOTE | 2017-06-02 13:00 | NUR ---
DR ABEL SEE PATIENT AND ORDER OK TO D/C HOME TODAY PATIENT AND FAMILY DAUGHTER WAS INFORM D/C INSTRUCTION GIVEN VERBALIZES UNDERSTAND AND D/C SHEET SIGNS HL MIDLINE D/C PRIOR D/C HOME TODAY
[2017-06-02 15:11] VITALS: BP 156/68
[2017-06-02] MEDS ORDERED: AMLO10TA2 PO (15:58)
[2017-06-02] MEDS ORDERED: METO50TA16 PO (15:58)
[2017-06-02] MEDS ORDERED: ATOR10TA PO (15:58)
--- NOTE | 2017-06-02 16:30 | NUR ---
D/C HOME WITH HER BELONGING ACCOMP[ANIES WITH DAUGHTER HOME MEDICINE EXPLAINED ON DR ESPINOZA V TO PT DAUGHTER VERBALIZES UNDERSTAND AND SIGNS D/C SHEET CONDITION STABLE NO CHEST PAIN OR SOB
[2017-06-02] MEDS ORDERED: INSULIN DETEMIR 300 UNIT/3 ML CARTRIDGE SQ SCH (21:00)
[2017-06-02] MEDS ORDERED: ATORVASTATIN 10 MG TABLET PO SCH (21:00)
== END 2017-06-02 16:30 | disposition home health service (06) | DRG 205 ==
LOC: ER 19:27 → TRANSITION 05-28 11:10 → TELE 05-28 12:47 → MED 05-30 13:50
PROVIDERS: ADMIT Internal Medicine; ATTEND Nurse Practitioner Acute Care
PROC: 05H633Z Insertion of Infusion Device into Left Subclavian Vein, Percutaneous Approach (ICD-10-PCS; principal; 2017-05-28)
PROC: 5A1D70Z Performance of Urinary Filtration, Intermittent, Less than 6 Hours Per Day (ICD-10-PCS; 2017-05-29)
DX: M94.0 Chondrocostal junction syndrome [Tietze] (principal); E43 Unspecified severe protein-calorie malnutrition; I13.2 Hypertensive heart and chronic kidney disease with heart failure and with stage 5 chronic kidney disease, or end stage renal disease; E11.22 Type 2 diabetes mellitus with diabetic chronic kidney disease; N18.6 End stage renal disease; I08.3 Combined rheumatic disorders of mitral, aortic and tricuspid valves; I50.33 Acute on chronic diastolic (congestive) heart failure; J21.9 Acute bronchiolitis, unspecified; E11.65 Type 2 diabetes mellitus with hyperglycemia; I27.20 Pulmonary hypertension, unspecified; Z68.22 Body mass index [BMI] 22.0-22.9, adult; Z99.2 Dependence on renal dialysis; Z79.4 Long term (current) use of insulin; D47.3 Essential (hemorrhagic) thrombocythemia; Z79.899 Other long term (current) drug therapy
CPT/HCPCS: 36415; 70030-TC; 71045; 83735; 84100; 85025; 85730; 90937; 93005; 93307; A4663; J0360; J0456; J1170; J1815; J1940; J2270; J2405; J2765; J2920; J2930; J3490; J7040; J7050; J7060; Q9967

== ENCOUNTER 2018-09-23 20:32 | Inpatient (IN) | payer MEDICARE, MEDICAID ==
[~2018-09-23] VITALS: Ht 152.4 cm; Wt 48.7 kg
[~2018-09-23 20:32] MED LIST changes: +AMLO10TA7 PO; +ATOR10TA PO; -ATOR20TA PO; +METO50TA16 PO
--- NOTE | 2018-09-23 20:38 | NUR ---
Dr. Jarquin at bedside for MSE.
--- NOTE | 2018-09-23 20:43 | NUR ---
Xray at bedside.
[2018-09-23 20:55] LABS: BASOPHILS % (AUTO) 0.9 % (0.0-2.0); EOSINOPHILS # (AUTO) 0.3 K/uL (0.0-0.7); EOSINOPHILS % (AUTO) 6.3 % (0.0-7.0); HEMATOCRIT 36.2 % (31.2-41.9); HEMOGLOBIN 11.9 g/dL (10.9-14.3); LYMPHOCYTES % (AUTO) 20.1 % (20.5-51.5); MEAN CORPUSCULAR HEMOGLOBIN 32.5 uug (24.7-32.8); MEAN CORPUSCULAR HGB CONC 33 g/dL (32.3-35.6); MONOCYTES # (AUTO) 0.4 K/uL (2.0-10.0); MONOCYTES % (AUTO) 7.8 % (0.0-11.0); NEUTROPHILS # (AUTO) 3.1 K/uL (1.8-8.9); NEUTROPHILS % (AUTO) 64.9 % (38.5-71.5); PLATELET COUNT (AUTO) 165 K/uL (179-408); RED BLOOD CELL COUNT(AUTO) 3.66 MIL/uL (3.63-4.92); WHITE BLOOD COUNT (AUTO) 4.8 K/uL (3.8-11.8)
[2018-09-23 21:00] VITALS: BP 156/38
[2018-09-23 21:02] LABS: CREATININE 4.2 mg/dL (0.6-1.3); POTASSIUM 4.4 mmol/L (3.5-5.1)
--- NOTE | 2018-09-23 21:07 | NUR ---
Pt desatting to to 88% on room air, placed pt on O2 @2L/min via nasal cannula.
[2018-09-23] MEDS ORDERED: INSULIN REGULAR, HUMAN 300 UNIT/3 ML VIAL SQ ONE (21:30)
[2018-09-23] MEDS ORDERED: INSULIN REGULAR, HUMAN 300 UNIT/3 ML VIAL ONE (21:36)
--- NOTE | 2018-09-23 21:42 | NUR ---
Dr. Jarquin on panel call with Dr. Jorge Alberto Tinajero. Pt accepted for tele admission, diagnosis: hypoxia, right pleural effusion.
--- NOTE | 2018-09-23 21:58 | NUR ---
Report given to Will television operator.
--- NOTE | 2018-09-23 22:25 | NUR ---
PATIENT ADMITTED IN TELE UNIT UNDER THE CARE OF DR. CRANDALL, BELONGING LIST DONE. INTERVIEWED DAUGHTER ZI AND NICOLASA AND STATED THAT PATIENT ONLY ALLERGIC TO [facility]. PATIENT HAS R UPPER ARM DIALYSIS SHUNT WITH DRESSING, AND HAS BILATERAL FEET REDNESS. DR CRANDALL WAS NOTIFIED. DAUGHTER WAS BEDSIDE TO HELP WITH ADMISSION INTERVIEW.
[2018-09-23] MEDS ORDERED: ALBUTEROL SULFATE 2.5 MG/ 0.5 ML NEBU NEB PRN (22:45)
[2018-09-23] MEDS ORDERED: ONDANSETRON 4 MG/2 ML VIAL IV PRN (22:45)
[2018-09-23] MEDS ORDERED: ZOLPIDEM 5 MG TABLET PO PRN (22:45)
--- NOTE | 2018-09-23 23:28 | NUR ---
PATIENT HAS DIALYSIS DONE TODAY PER ER NURSE AND PER PATIENT, AND STATED THEY TOOK 3 LITERS TODAY.
[2018-09-24 00:02] VITALS: BP 171/64
[2018-09-24 04:00] VITALS: BP 146/41
[2018-09-24] MEDS: PANTOPRAZOLE SODIUM 40 MG TABLET.DR PO SCH (06:05)
[2018-09-24 06:40] LABS: BASOPHILS # (AUTO) 0.1 K/uL (0.0-8.0); BASOPHILS % (AUTO) 1.1 % (0.0-2.0); EOSINOPHILS # (AUTO) 0.4 K/uL (0.0-0.7); EOSINOPHILS % (AUTO) 7.8 % (0.0-7.0); HEMATOCRIT 35.3 % (31.2-41.9); HEMOGLOBIN 11.5 g/dL (10.9-14.3); LYMPHOCYTES # (AUTO) 1.2 K/uL (20.0-40.0); LYMPHOCYTES % (AUTO) 24.7 % (20.5-51.5); MEAN CORPUSCULAR HEMOGLOBIN 32.2 uug (24.7-32.8); MEAN CORPUSCULAR HGB CONC 33 g/dL (32.3-35.6); MEAN CORPUSCULAR VOLUME 98.9 fL (75.5-95.3); MONOCYTES # (AUTO) 0.4 K/uL (2.0-10.0); MONOCYTES % (AUTO) 9.4 % (0.0-11.0); NEUTROPHILS # (AUTO) 2.7 K/uL (1.8-8.9); PLATELET COUNT (AUTO) 174 K/uL (179-408); RED BLOOD CELL COUNT(AUTO) 3.57 MIL/uL (3.63-4.92); WHITE BLOOD COUNT (AUTO) 4.8 K/uL (3.8-11.8)
[2018-09-24 07:07] LABS: BILIRUBIN,TOTAL 0.3 mg/dL (0.2-1.0); CREATININE 4.8 mg/dL (0.6-1.3); MAGNESIUM 2.9 mg/dL (1.8-2.4); PHOSPHOROUS 6.7 mg/dL (2.5-4.9); POTASSIUM 4.6 mmol/L (3.5-5.1); THYROID STIMULATING HORMONE 2.128 mIU/mL (0.358-3.740); TOTAL PROTEIN, SERUM 6.9 g/dL (6.4-8.2)
--- NOTE | 2018-09-24 07:29 | NUR ---
PATIENT ALERT ORIENTED NO SOB NO CHEST PAIN, TELE MONITOR SINUS RHYTHM. R UPPER ARM AV SHUNT DRESSING INTACT, NO BLEEDING NOTED. CONT TO MONITOR.
[2018-09-24] MEDS ORDERED: ALBUTEROL SULFATE 2.5 MG/3 ML NEBU NEB PRN (08:00)
[2018-09-24] MEDS ORDERED: DEXTROSE 50% 50 ML DISP.SYRIN IV PRN ×2 (08:45→11:00)
[2018-09-24] MEDS ORDERED: INSULIN REGULAR, HUMAN 300 UNIT/3 ML VIAL SQ PRN ×3 (08:45)
[2018-09-24] MEDS: CLONIDINE HCL 0.1 MG TABLET PO SCH ×2 (09:58→17:00)
[2018-09-24] MEDS: AMLODIPINE 10 MG TABLET PO SCH (09:58)
[2018-09-24] MEDS: METOPROLOL TARTRATE 50 MG TABLET PO SCH ×2 (09:58→21:01)
--- NOTE | 2018-09-24 10:52 | NUR ---
pt blood sugar is 447 md made aware and insulin given per sliding scale
[2018-09-24 11:14] VITALS: BP 177/52
[2018-09-24] MEDS ORDERED: BLOOD SUGAR DIAGNOSTIC 1 EACH STRIP VI SCH (11:30)
[2018-09-24] MEDS: BLOOD SUGAR DIAGNOSTIC 1 EACH STRIP VI SCH ×3 (12:00→21:01)
[2018-09-24] MEDS: INSULIN REGULAR, HUMAN 300 UNIT/3 ML VIAL SQ PRN (12:29)
[2018-09-24] MEDS: hydrALAZINE HCL 50 MG TABLET PO SCH ×2 (14:00→22:08)
--- NOTE | 2018-09-24 15:10 | NUR ---
on pt rounding pt does not look good moning for pain and sweating ,check the blood sugar and v/s ,pt blood sugar is 14 and bp is 186/90 hr is 83 md and charge nurse made aware .per md orders dextrose 50% given iv and orange juice given ,stat orders for lab to draw the blood.
[2018-09-24 15:20] VITALS: BP 113/38
--- NOTE | 2018-09-24 15:25 | NUR ---
recheck the blood sugar 192 md notified and pt bp is 160/70
--- NOTE | 2018-09-24 15:37 | NUR ---
UNABLE TO DO THORACENTESIS DUE TO PT UNSTABLE. BP LOW AND PT FEELING DIZZY. ON HOLD FOR TMRW
[2018-09-24 15:42] VITALS: BP 132/47
--- NOTE | 2018-09-24 19:20 | NUR ---
Received patient lying in bed. AAOX4. In no acute distress. Denies any pain or SOB at this time. IV site on left hand intact and patent. NSR on tele at 66/min. On O2 at 2LPM via NC in place. O2 sat at 97%. Safety measure initiated and call higgins within reach.
--- NOTE | 2018-09-24 19:20 | NUR ---
Received patient lying in bed. AAOx3. In no acute distress. Denies any pain or SOB. NSR on tele with PVC at 65/min. Patient will be discharge to [facility]. Patient and family aware. Family at bedside. Safety measure initiated and call higgins within reach. Addendum: 09/24/18 at 2130 by SHAR HARRIS RN wrong patient
--- NOTE | 2018-09-24 20:00 | NUR ---
Patient remains AAOX3. Mainly Farsi speaking. VS WNL. Denies any pain or SOB. Discharge paper signed by patient. Family still at bedside. Patient Discharge to ARU unit. Report given to ARU nurse Shantel. Addendum: 09/24/18 at 2130 by SHAR HARRIS RN wrong patient
[2018-09-24 20:58] VITALS: BP 156/48
[2018-09-24] MEDS: ACETAMINOPHEN 325 MG TABLET PO PRN (21:00)
[2018-09-24] MEDS: ATORVASTATIN 10 MG TABLET PO SCH (21:00)
[2018-09-24] MEDS: INSULIN REGULAR, HUMAN 300 UNITS/3 ML VIAL SQ PRN (21:03)
[2018-09-25 00:26] VITALS: BP 155/40
[2018-09-25 04:08] LABS: HEPATITIS B SURFACE AB Reactive (.); HEPATITIS B SURFACE AG Negative (Negative)
[2018-09-25 05:43] VITALS: BP 152/40
[2018-09-25] MEDS: hydrALAZINE HCL 50 MG TABLET PO SCH ×3 (05:47→22:00)
[2018-09-25] MEDS: PANTOPRAZOLE SODIUM 40 MG TABLET.DR PO SCH (06:12)
[2018-09-25 06:16] LABS: BASOPHILS # (AUTO) 0.1 K/uL (0.0-8.0); BASOPHILS % (AUTO) 0.9 % (0.0-2.0); EOSINOPHILS # (AUTO) 0.3 K/uL (0.0-0.7); EOSINOPHILS % (AUTO) 4.9 % (0.0-7.0); HEMATOCRIT 33.4 % (31.2-41.9); HEMOGLOBIN 10.8 g/dL (10.9-14.3); LYMPHOCYTES # (AUTO) 1.2 K/uL (20.0-40.0); LYMPHOCYTES % (AUTO) 19.5 % (20.5-51.5); MEAN CORPUSCULAR HEMOGLOBIN 32.2 uug (24.7-32.8); MEAN CORPUSCULAR HGB CONC 32 g/dL (32.3-35.6); MONOCYTES # (AUTO) 0.5 K/uL (2.0-10.0); MONOCYTES % (AUTO) 8.5 % (0.0-11.0); NEUTROPHILS % (AUTO) 66.2 % (38.5-71.5); PLATELET COUNT (AUTO) 165 K/uL (179-408); RED BLOOD CELL COUNT(AUTO) 3.35 MIL/uL (3.63-4.92)
[2018-09-25 06:25] LABS: CREATININE 6.5 mg/dL (0.6-1.3); MAGNESIUM 3.2 mg/dL (1.8-2.4); POTASSIUM 5.8 mmol/L (3.5-5.1)
--- NOTE | 2018-09-25 06:25 | NUR ---
AAOX4. In no acute distress. Denies any further headache. Denies any SOB. O2 at 2LPM via NC in place. O2 sat at 98%. IV site on left hand intact and patent. NSR on tele at 64/min. Safety measure maintained and call higgins within reach.
[2018-09-25] MEDS: BLOOD SUGAR DIAGNOSTIC 1 EACH STRIP VI SCH ×4 (06:31→21:25)
[2018-09-25 06:35] LABS: PHOSPHOROUS 8.5 mg/dL (2.5-4.9)
--- NOTE | 2018-09-25 06:35 | NUR ---
CRITICAL LAB VALUE FOR GLUCOSE WAS 358 AND PHOSPHORUS WAS 8.5 PER PRODUCT CONSULTANT GABRIELA. WILL CONTACT DR ABEL.
--- NOTE | 2018-09-25 07:01 | NUR ---
DR ABEL WITH ORDER TO FOLLOW SLIDING SCALE COVERAGE FOR BLOOD SUGAR RESULT. NO NEW OTHER ORDER GIVEN.
[2018-09-25 08:00] VITALS: BP 143/47
--- NOTE | 2018-09-25 08:06 | NUR ---
Awake, alert, oriented x 4, belarusian speaking. On moderate high back rest
[2018-09-25] MEDS: INSULIN REGULAR, HUMAN 300 UNIT/3 ML VIAL SQ PRN ×2 (09:15→12:35)
[2018-09-25] MEDS: SEVELAMER CARBONATE 800 MG TABLET PO SCH ×3 (09:20→17:02)
--- NOTE | 2018-09-25 13:10 | NUR ---
Hemodialysis done with 1L output. Prepared for Thoracentesis
[2018-09-25 13:12] VITALS: BP 136/44
[2018-09-25] MEDS: MORPHINE SULFATE 2 MG/1 ML DISP.SYRIN IV PRN ×2 (13:34→17:02)
[2018-09-25] MEDS: METOPROLOL TARTRATE 50 MG TABLET PO SCH ×2 (13:38→21:24)
[2018-09-25] MEDS: AMLODIPINE 10 MG TABLET PO SCH (13:39)
[2018-09-25] MEDS: CLONIDINE HCL 0.1 MG TABLET PO SCH ×2 (13:39→16:58)
--- NOTE | 2018-09-25 13:53 | NUR ---
Ultrasound guided thoracentesis of right lung done with 1 L output. Specimen sent to lab as ordered including cytology. Patient in severe pain post procedure, crying. Morphine 1V given. Repositioned comfortably. Waiting for CXR
[2018-09-25] MEDS: ACETAMINOPHEN 325 MG TABLET PO PRN (15:07)
--- NOTE | 2018-09-25 15:07 | NUR ---
Still crying with pain, Tylenol po given
[2018-09-25 16:00] VITALS: BP 133/42
--- NOTE | 2018-09-25 17:05 | NUR ---
With some relief with Tylenol but still with pain. Morphine given as ordered
--- NOTE | 2018-09-25 18:49 | NUR ---
Resting, repositioned comfortably
--- NOTE | 2018-09-25 20:00 | NUR ---
Received patient laying in bed. Family is at bedside. C/O right flank pain, insertion site of the thoracentesis 12/01. In room air. TELE SR at 60. Anuric. Working AV shunt is on the right upper arm. Non working AV shunt is on the left upper arm. Bedrest. Safety initiated. Call light within reach. Will continue to monitor.
[2018-09-25 20:51] VITALS: BP 124/46
[2018-09-25] MEDS ORDERED: INSULIN GLARGINE,HUM 300 UNITS/3 ML CARTRIDGE SQ SCH (21:00)
[2018-09-25] MEDS: ATORVASTATIN 10 MG TABLET PO SCH (21:24)
[2018-09-25] MEDS: INSULIN REGULAR, HUMAN 300 UNITS/3 ML VIAL SQ PRN (21:29)
--- NOTE | 2018-09-25 22:00 | NUR ---
HELD Apresoline BP medication because BP was low 133/38 HR at 60. Will closely monitor.
[2018-09-26] MEDS: MORPHINE SULFATE 2 MG/1 ML DISP.SYRIN IV PRN (03:49)
[2018-09-26 04:52] VITALS: BP 144/49
--- NOTE | 2018-09-26 05:46 | NUR ---
Patient slept intermittently t/o shift. C/O left sided pain from the insertion site if the thoracentesis, medication given, stated relief. Patient remains in room air. IV heplock on the left hand, patent and intact. AV fistula on the right upper arm, bruit and thrill present. TELE SR at 61. Noted upper and lower extremity discoloration. Anuric. All meds given as ordered. All needs met. All safety and comfort measures maintained t/o shift
[2018-09-26] MEDS: PANTOPRAZOLE SODIUM 40 MG TABLET.DR PO SCH (06:31)
[2018-09-26] MEDS: BLOOD SUGAR DIAGNOSTIC 1 EACH STRIP VI SCH ×2 (06:31→12:16)
[2018-09-26] MEDS: hydrALAZINE HCL 50 MG TABLET PO SCH ×2 (06:33→13:50)
[2018-09-26 06:39] LABS: BASOPHILS # (AUTO) 0.1 K/uL (0.0-8.0); BASOPHILS % (AUTO) 0.8 % (0.0-2.0); EOSINOPHILS # (AUTO) 0.4 K/uL (0.0-0.7); EOSINOPHILS % (AUTO) 4.6 % (0.0-7.0); HEMATOCRIT 33.8 % (31.2-41.9); LYMPHOCYTES # (AUTO) 1.1 K/uL (20.0-40.0); LYMPHOCYTES % (AUTO) 13.8 % (20.5-51.5); MEAN CORPUSCULAR HEMOGLOBIN 32.3 uug (24.7-32.8); MEAN CORPUSCULAR HGB CONC 32 g/dL (32.3-35.6); MEAN CORPUSCULAR VOLUME 99.6 fL (75.5-95.3); MONOCYTES # (AUTO) 0.5 K/uL (2.0-10.0); MONOCYTES % (AUTO) 6.5 % (0.0-11.0); NEUTROPHILS # (AUTO) 5.7 K/uL (1.8-8.9); NEUTROPHILS % (AUTO) 74.3 % (38.5-71.5); PLATELET COUNT (AUTO) 142 K/uL (179-408); WHITE BLOOD COUNT (AUTO) 7.7 K/uL (3.8-11.8)
[2018-09-26 07:11] LABS: CREATININE 5.3 mg/dL (0.6-1.3); MAGNESIUM 2.6 mg/dL (1.8-2.4); PHOSPHOROUS 6.8 mg/dL (2.5-4.9); POTASSIUM 5.4 mmol/L (3.5-5.1)
[2018-09-26] MEDS: INSULIN REGULAR, HUMAN 300 UNIT/3 ML VIAL SQ PRN ×2 (08:27→12:18)
[2018-09-26] MEDS: METOPROLOL TARTRATE 50 MG TABLET PO SCH (08:30)
[2018-09-26] MEDS: CLONIDINE HCL 0.1 MG TABLET PO SCH (08:31)
[2018-09-26] MEDS: AMLODIPINE 10 MG TABLET PO SCH (08:31)
[2018-09-26] MEDS: SEVELAMER CARBONATE 800 MG TABLET PO SCH ×2 (08:31→12:22)
[2018-09-26 11:37] VITALS: BP 125/35
[2018-09-26] MEDS ORDERED: SEVE800T7 PO (12:49)
[2018-09-26] MEDS ORDERED: LEVO750T21 PO (12:49)
[2018-09-26] MEDS ORDERED: Insulin Glargine,Hum SQ (12:49)
[2018-09-26] MEDS ORDERED: METOCLOPRAMIDE HCL 10 MG/2 ML VIAL IV PRN ×2 (13:15→13:30)
[2018-09-26 13:50] VITALS: BP 137/39
--- NOTE | 2018-09-26 14:35 | NUR ---
Patient is AO4, no SOB or distress, RA at 94%, AV fistula on the right upper arm, bruit and thrill present. no bleeding , intact. TELE SR at 64. Anuric. All safety and comfort measures maintained t/o shift D/c papers are given to the patient and family at bed side, teaching done and prescription is given. Patient left with family and took down by wheel chair.
== END 2018-09-26 14:30 | disposition home or self-care (01) | DRG 189 ==
LOC: ER 20:32 → TELE3 21:50
PROVIDERS: ADMIT Internal Medicine; ATTEND Registered Nurse
PROC: 0W993ZX Drainage of Right Pleural Cavity, Percutaneous Approach, Diagnostic (ICD-10-PCS; principal; 2018-09-24)
PROC: 5A1D70Z Performance of Urinary Filtration, Intermittent, Less than 6 Hours Per Day (ICD-10-PCS; 2018-09-25)
DX: J96.01 Acute respiratory failure with hypoxia (principal); N18.6 End stage renal disease; I21.A1 Myocardial infarction type 2; I13.2 Hypertensive heart and chronic kidney disease with heart failure and with stage 5 chronic kidney disease, or end stage renal disease; J91.8 Pleural effusion in other conditions classified elsewhere; I50.32 Chronic diastolic (congestive) heart failure; E44.0 Moderate protein-calorie malnutrition; T82.838A Hemorrhage due to vascular prosthetic devices, implants and grafts, initial encounter; J98.11 Atelectasis; E87.8 Other disorders of electrolyte and fluid balance, not elsewhere classified; Z87.891 Personal history of nicotine dependence; E11.22 Type 2 diabetes mellitus with diabetic chronic kidney disease; Z99.2 Dependence on renal dialysis; Z68.21 Body mass index [BMI] 21.0-21.9, adult; E11.649 Type 2 diabetes mellitus with hypoglycemia without coma; T38.3X5A Adverse effect of insulin and oral hypoglycemic [antidiabetic] drugs, initial encounter; Y92.230 Patient room in hospital as the place of occurrence of the external cause; R74.0 Nonspecific elevation of levels of transaminase and lactic acid dehydrogenase [LDH]; D63.1 Anemia in chronic kidney disease; Z90.49 Acquired absence of other specified parts of digestive tract; Z79.4 Long term (current) use of insulin; Z79.899 Other long term (current) drug therapy; I34.0 Nonrheumatic mitral (valve) insufficiency; E83.39 Other disorders of phosphorus metabolism; Y84.1 Kidney dialysis as the cause of abnormal reaction of the patient, or of later complication, without mention of misadventure at the time of the procedure; Y92.531 Health care provider office as the place of occurrence of the external cause
CPT/HCPCS: 32555; 36415; 70030-TC; 71045; 83615; 83735; 83986; 84100; 84155; 84443; 85025; 85730; 86706; 87070; 87205; 87340; 90937; 93005; 93307; A4663; G0378; J1815; J2270; J2405; J2765; J3490